=== PATIENT | male | born 1970 | race Caucasian/White ===

== ENCOUNTER 2021-02-25 12:26 | Emergency (ER) | payer OTHER, SELFPAY ==
[2021-02-25 12:27] VITALS: BP 135/88; PULSE 89; RESP 16; TEMP 36.9; O2SAT 100; BMI 31.4
--- NOTE | 2021-02-25 14:11 | RAD_ITS ---
STUDY: X-RAY - RIGHT FOOT CLINICAL: Male, 50 years old. Foot pain -- EDIT LATERALITY, VERB DR. CALDERON TECHNIQUE: 3 view(s) of the foot. COMPARISON: None. FINDINGS: Normal talus, calcaneus, and tarsal bones. Normal visualized subtalar, talonavicular, calcaneocuboid, tarsal and tarsometatarsal articulations. Normal metatarsi. Normal metatarsophalangeal joint of the great toe. There is a bipartite fibula sesamoid. Normal interphalangeal joint of the great toe. Normal phalanges of the great toe. Normal second through fifth metatarsophalangeal joints. Normal interphalangeal joints and phalanges of the lesser toes. Soft tissue swelling. RAD/Foot min 3 Views IMPRESSION: Soft tissue swelling. Electronically Signed: Olivier Pennington MD at 15:11 EDT , Service support ,
--- NOTE | 2021-02-25 14:36 | EX.ED.DYSGE1 ---
HPI History of Present Illness Chief Complaint: Cellulitis Narrative Narrative: Patient presenting for evaluation of his feet. He was put on doxycycline for a week as he had cellulitis secondary to athlete's foot. He states his foot was not getting better and his physician told him to come to the ED for evaluation. Patient states is not specifically painful and he does not have any systemic signs or symptoms. He states he is still being treated for athlete's foot on the left foot. This foot is not bothering him. He has no history of diabetes. PFSH PFSH Medical History GERD (gastroesophageal reflux disease) Hypertension Smoker Home Medications Triamcinolone 0.1% Cream [Kenalog] 1 applic TOPICAL TID #1 tube 05/24/16 [Rx Last Taken Unknown] aspirin 81 mg PO DAILY 05/24/16 [History Last Taken 05/24/16] doxycycline hyclate 100 mg PO BID 05/24/16 [History Last Taken 05/24/16] hydrochlorothiazide 25 mg PO DAILY 05/24/16 [History Last Taken 05/24/16] lisinopril 5 mg PO DAILY 05/24/16 [History Last Taken 05/24/16] clindamycin HCl 450 mg PO TID #80 capsule 02/25/21 [Rx Last Taken Unknown] fluconazole [Diflucan] 150 mg PO DAILY 02/25/21 [History Last Taken Unknown] ketoconazole 1 applic TOPICAL DAILY #60 g 02/25/21 [Rx Last Taken Unknown] levofloxacin 500 mg PO DAILY #7 tab 02/25/21 [Rx Last Taken Unknown] Allergy/AdvReac Type Severity Reaction Status Date / Time Penicillins [PCN] Allergy Hives Verified 02/25/21 15:00 Surgical History (Updated 02/25/21 @ 15:06 by Milady Melara) History of cholecystectomy Social History Smoking Status: Current every day smoker tobacco type: cigarettes ROS ROS ED Constitutional Constitutional ED: Denies chills or fever(s) Eyes Eyes: Denies blurry vision or change in vision ENT ENT ED: Denies rhinorrhea or sore throat Cardiovascular Cardiovascular: Denies chest pain or palpitations Respiratory/Chest Respiratory/Chest: Denies cough or dyspnea Gastrointestinal Gastrointestinal: Denies abdominal pain or nausea Genitourinary Genitourinary ED: Denies dysuria or hematuria Musculoskeletal Musculoskeletal: Denies myalgias Integumentary Reports rash and other Details: Athlete's foot on bilateral feet with cellulitis on his right foot. Neurologic Neurologic: Denies headache(s), paresthesias or weakness EXAM Physical Exam Const Vital Signs: 02/25/21 12:27 02/25/21 15:08 Temperature 98.5 F Temperature Source Temporal Pulse Rate 89 96 Respiratory Rate 16 18 Blood Pressure 135/88 H 133/87 H Blood Pressure Mean 103 102 Pulse Ox 100 97 Oxygen Delivery Method Room Air Room Air Positive well nourished and well developed General Appearance ED: well developed HEENT Reports moist mucous membranes Negative for trauma Resp normal respiratory effort Cardio regular rate and regular rhythm MDM MDM MDM Narrative Medical decision making narrative: Patient presenting with cellulitis. Has been on doxycycline for 6 to 7 days and not having improvement. He is not had any systemic signs or symptoms. I obtained blood work today which shows no leukocytosis. His renal function electrolytes are normal. CRP is normal. X-ray of the right foot shows mild soft tissue swelling on my interpretation. There is no subcutaneous gas. Patient not having pain or crepitance on exam either. I spoke with Dr. Galicia regarding the patient and he feels that he can see him tomorrow and we should start him on Levaquin and clindamycin. He will stop taking his Diflucan and start using ketoconazole on his feet. Patient amenable to this plan. He is discharged in stable condition. Impression: 1. Right foot cellulitis 2. Tinea pedis Lab Data Labs: Laboratory Results - last 24 hr 02/25/21 02/25/21 14:30 14:30 WBC 8.3 RBC 4.56 L Hgb 15.3 Hct 44.3 MCV 97.1 H MCH 33.6 H MCHC 34.5 RDW Std Deviation 41.3 RDW Coeff of Ren 11.6 Plt Count 277 MPV 8.2 Immature Gran % (Auto) 0.400 Neut % (Auto) 52.9 Lymph % (Auto) 24.7 [place] % (Auto) 12.7 H Eos % (Auto) 8.6 H Baso % (Auto) 0.7 Absolute Neuts (auto) 4.4 Absolute Lymphs (auto) 2.06 Nucleated RBC % 0 ESR 21 H Sodium 136 Potassium 3.9 Chloride 103 Carbon Dioxide 25.0 Anion Gap 8 BUN 16 Creatinine 1.01 Estim Creat Clear Calc 91.12 Est GFR (MDRD) Af Amer 99 Est GFR (MDRD) Non-Af 82 BUN/Creatinine Ratio 15.8 Glucose 113 H Calcium 8.8 C-React Prot Ext Range < 2.90 Radiography Diagnostic Testing: Radiology Impression Foot X-Ray 02/25/21 14:11 IMPRESSION: Soft tissue swelling. Electronically Signed: Olivier Pennington MD at 15:11 EDT , Service support , Discharge Plan Triage Chief Complaint: Cellulitis ED Provider: Layo Monahan Dx/Rx/DC Orders Instructions: Cellulitis Prescriptions: New levofloxacin 500 mg tablet 500 mg PO DAILY Qty: 7 RF: 0 clindamycin HCl 150 mg capsule 450 mg PO TID Qty: 80 RF: 0 ketoconazole 2 % cream 1 applic topical DAILY Qty: 60 RF: 0 No Action doxycycline hyclate 100 MG capsule 100 mg PO BID RF: 0 aspirin 81 MG tablet,delayed release (DR/EC) 81 mg PO DAILY RF: 0 lisinopril 5 MG tablet 5 mg PO DAILY RF: 0 hydrochlorothiazide 25 MG tablet 25 mg PO DAILY RF: 0 Triamcinolone 0.1% Cream [Kenalog] 1 APPLIC Tube 1 applic topical TID Qty: 1 RF: 0 fluconazole [Diflucan] 150 mg Tablet 150 mg PO DAILY RF: 0 Primary Care Provider: Jeremy Pablo Referrals: Jatinder Galicia DPM [STAFF PHYSICIAN] - 1 Day Jeremy Pablo MD [Primary Care Provider] - Disposition Disposition: Home, Self Care
[2021-02-25 14:41] LABS: Absolute Lymphocyte Count 2.06 X10^3/uL (0.83-4.51); Absolute Neutrophil Count 4.4 X10^3/uL (2.0-7.7); Basophil# 0.06 X10^3/uL; Basophil% 0.7 % (0-1); Eosinophil# 0.72 X10^3/uL; Eosinophils% 8.6 % (0-5); Erythrocyte Sedimentation Rate 21 mm/hr (0-20); Hematocrit 44.3 % (40-54); Hemoglobin 15.3 g/dL (13.0-16.5); Lymphocyte # 2.06 X10^3/ul (0.83-4.51); Lymphocyte % 24.7 % (19-41); Mean Corp Hgb Conc 34.5 g/dL (32-36); Mean Corpuscular Hgb 33.6 pg (27.0-32.0); Mean Corpuscular Volume 97.1 fL (80-94); Mean Platelet Vol. 8.2 fl (6.2-12.0); Monocyte# 1.06 X10^3/uL; Monocyte% 12.7 % (0-10); NRBC Flagged by Analyzer 0 % (0-5); Neutrophil % 52.9 % (47-70); Platelet Count 277 K/mm3 (150-450); RBC Distribution Width CV 11.6 % (11.6-14.6); RBC Distribution Width SD 41.3 fl (35.1-43.9); Red Blood Count 4.56 M/mm3 (4.6-6.2); White Blood Count 8.3 K/mm3 (4.4-11.0)
[2021-02-25 14:50] LABS: Anion Gap 8 (5-15); BUN 16 mg/dL (7-18); BUN/Creat Ratio 15.8 RATIO (10-20); CRP < 2.90 mg/L (0.0-3.0); Calcium,Total 8.8 mg/dL (8.5-10.1); Chloride 103 mmol/L (98-107); Creatinine, Serum 1.01 mg/dL (0.70-1.30); EST Glomerular Filtration Rate 82 mL/min (>60); Est Glom Filt Rate - Afr Amer 99 mL/min (>60); Estimated Creatinine Clearance 91.12 ml/min; Glucose 113 mg/dL (74-106); Potassium 3.9 mmol/L (3.5-5.1); Sodium Level 136 mmol/L (136-145)
[2021-02-25 15:08] VITALS: BP 133/87; PULSE 96; RESP 18; O2SAT 97
[2021-02-25] MEDS: Clindamycin HCl 150 MG Capsule 450 MG PO (15:54)
[2021-02-25] MEDS: levoFLOXacin 500 MG Tablet PO (15:54)
[2021-02-26 08:38] LABS: AST(SGOT) 26 U/L (15-37); Alanine Aminotransfer ALT/SGPT 44 U/L (16-61); Albumin, Serum 3.7 g/dL (3.2-5.0); Alkaline Phosphatase 79 U/L (45-117); Bilirubin, Direct 0.17 mg/dL (0.00-0.30); Globulin 3.9 g/dL (2.2-4.2); Protein, Total 7.6 g/dL (6.4-8.2)
== END 2021-02-25 16:00 | disposition home or self-care (01) ==
PROVIDERS: Emergency Provider Student in an Organized Health Care Education/Training Program; PCP Family Medicine
DX: L03.115 Cellulitis of right lower limb (principal); B35.3 Tinea pedis; I10 Essential (primary) hypertension; K21.9 Gastro-esophageal reflux disease without esophagitis; F17.210 Nicotine dependence, cigarettes, uncomplicated; Z79.82 Long term (current) use of aspirin; Z79.899 Other long term (current) drug therapy
CPT/HCPCS: 73630; 80048; 80076; 85025; 85652; 86140; 99283; A4216

== ENCOUNTER 2021-02-26 13:07 | Inpatient (IN) | payer OTHER, SELFPAY ==
[2021-02-25 12:27] VITALS: BMI 31.4
[2021-02-26 13:01] VITALS: BMI 31.5
[2021-02-26 13:03] VITALS: BP 135/90; PULSE 113; RESP 18; TEMP 36.7; O2SAT 98
[2021-02-26] MEDS: 0.9% Saline Lock 10 ML Syringe IV ×2 (13:29→15:13)
--- NOTE | 2021-02-26 13:48 | NURSING ---
skin photo: left foot
--- NOTE | 2021-02-26 13:48 | NURSING ---
wound photo: right foot
--- NOTE | 2021-02-26 13:49 | NURSING ---
wound photo: right foot
--- NOTE | 2021-02-26 13:55 | PCM.RX.CS ---
Consult Pharmacy has been consulted to manage selected antiobiotic: Vancomycin Type of Consult: New start Suspected Infection: Skin/Soft tissue Weight used for dosin kg Estimated Creatinine Clearance: 104mls/min Goal Trough: 10-15 mcg/mL Pharmacy Plan for Drug Dosing: NEW START IV VANCOMYCIN Consulting Physician: Dr. Galicia Indication: Cellulitis Goal Trough: 10-15 SrCr: 1.01 (from 02/25/21) CrCl: 104 mls/min (using an adjusted body weight of 86kg) Comments: Vancomcyin Dose: based on pts weight and renal function, recommend an initial dose of Vancomycin 1750mg IV q12h starting 02/26/21 at 1400. Trough before the 4th total dose Pending Level: 02/28/21 at 0130 Pharmacy Service will continue to monitor and adjust dosing as required. Follow-Up Labs: Trough Vancomycin - 02/28/21 at 0130
--- NOTE | 2021-02-26 14:38 | PCM.PN.HOSP ---
Subjective Subjective 50-year-old male presents from his census taker office for IV antibiotics. He has a left which started right lower extremity cellulitis about a week ago in the setting of athlete's foot that is been going on for 3 weeks in both of his feet. He says that he had so much swelling and itching from his athlete's foot that he had a cut develop on the right and then he started not with oral antibiotics however he took 1 dose of antibiotics and seemed to get worse he presented to his census taker who recommended he come in for IV antibiotics here in the hospital. He denies any history of diabetes and does have hypertensionicing some redness going up the leg. He did present to the ER yesterday and was sent home in between his first and second toes Objective Data Objective Data Vital Signs: Vital Signs Temp Pulse Resp BP Pulse Ox 98.1 F 113 H 18 135/90 H 98 02/26/21 13:03 02/26/21 13:03 02/26/21 13:03 02/26/21 13:03 02/26/21 13:03 Oxygen Delivery Method Room Air Weight: 226 lb 1.6 oz Body Mass Index (BMI) 31.5 Physical Exam Const alert, oriented x3 and no apparent distress General Appearance: cooperative HEENT normocephalic and moist oral mucous membranes Eyes PERRL, EOMs intact bilaterally and conjunctivae normal Neck supple and no JVD Resp normal respiratory effort, no retractions, no use of accessory muscles and clear to auscultation bilaterally Auscultation: Negative for crackles, rales, rhonchi or wheezes Cardio regular rate, regular rhythm, S1 normal heart sound, S2 normal heart sound and no murmurs GI soft to palpation, non-tender and non-distended; Negative for hepatosplenomegaly Extremity no clubbing, cyanosis or edema Skin Skin Narrative: Right lower extremity is wrapped culture was obtained by podiatry in the office. Neuro no focal motor deficits and no sensory deficits noted Psych affect normal Appearance: appropriate Assessment & Plan Assessment/Plan (1) Tinea pedis: QUALIFIERS: Laterality: bilateral Qualified Code(s): B35.3 - Tinea pedis (2) Cellulitis: QUALIFIERS: Laterality: right Site of cellulitis: extremity Site of cellulitis of extremity: lower extremity Qualified Code(s): L03.115 - Cellulitis of right lower limb PLAN: 1. Bilateral tinea pedis with cellulitis in the right lower extremity -Allergy to penicillin was a rash -Currently on vancomycin and Levaquin per primary, ID is consulted -Continue with terbinafine and clotrimazole 2. Hypertension -Blood pressure stable -Continue with chlorothiazide and lisinopril BMP is pending for the morning DVT: Ambulation secondary to observation status Charges/Coding Visit Charges OBSV E&M: 59378 Subsequent observation care L3
[2021-02-26] MEDS: levoFLOXacin IV 500 MG/100 ML BAG 100 MG IV (15:12)
[2021-02-26 16:43] VITALS: BP 120/80; PULSE 95; RESP 16; TEMP 37.2; O2SAT 96
--- NOTE | 2021-02-26 17:45 | PCM.HP.STD ---
HPI - General General Date of Admission: 02/26/21 HPI Narrative NILDA MORALES, is a 50 M who presents to hospital from office due to cellulitis right foot. He developed athletes foot about 3 weeks ago in the right foot, got worse, then when to PCP Dr. Pablo, started on Keflex and Diflucan, however continued to not improve so patient was sent to ER for hospital admission yesterday by Dr. Pablo. Dr. Monahan called me and said it did not require admission and asked if patient could follow up with me today in office to have it checked. Also antibiotic was changed from Keflex in ER to Clindamycin and Levaquin which patient relates he took 1 dose of each and it bothered his stomach. Also ER discontinued the Diflucan and switched him to topical ketoconazole cream for foot. Patient now has symptoms starting on left foot. Patient presented to my office today and symptoms not improving, relates he was expecting to be admitted yesterday. Patient relates there are blisters on the right foot and he relates to itching. He relates he has had a chronic rash on legs for quite awhile - red dots. Patient does not relate to any fever, chills, nausea or vomiting. Patient is a smoker. PFSH Medical History GERD (gastroesophageal reflux disease) Hypertension Loose, teeth Smoker Smoker Smoker Home Medications Triamcinolone 0.1% Cream [Kenalog] 1 applic TOPICAL TID #1 tube 05/24/16 [Rx Last Taken Unknown] aspirin 81 mg PO DAILY 05/24/16 [History Last Taken 02/19/21] hydrochlorothiazide 25 mg PO DAILY 05/24/16 [History Last Taken 02/26/21] lisinopril 5 mg PO DAILY 05/24/16 [History Last Taken 02/26/21] clindamycin HCl 450 mg PO TID #80 capsule 02/25/21 [Rx Last Taken 02/25/21] fluconazole [Diflucan] 150 mg PO DAILY 02/25/21 [History Last Taken 02/25/21] ketoconazole 1 applic TOPICAL DAILY #60 g 02/25/21 [Rx Last Taken 02/26/21] levofloxacin 500 mg PO DAILY #7 tab 02/25/21 [Rx Last Taken 02/26/21] Allergy/AdvReac Type Severity Reaction Status Date / Time Penicillins [PCN] Allergy Hives Verified 02/25/21 15:00 Surgical History (Updated 02/25/21 @ 15:06 by Milady Melara) History of cholecystectomy Social History (Updated 02/26/21 @ 13:13 by Bianca Hernandez) Smoking Status: Current every day smoker tobacco type: cigarettes details: occassional couple beers not daily Vital Signs Vital Signs Vital Signs: 02/26/21 13:03 02/26/21 13:35 02/26/21 16:00 Temperature 98.1 F Temperature Source Temporal Pulse Rate 113 H Respiratory Rate 18 Respiratory Effort Normal Non-Labored Respiratory Depth Normal Respiratory Pattern Normal Blood Pressure 135/90 H Blood Pressure Mean 105 Blood Pressure Source Monitor Blood Pressure Position Sitting Blood Pressure Location Right Arm Pulse Ox 98 Oxygen Delivery Method Room Air Room Air Room Air 02/26/21 16:43 Temperature 98.9 F Temperature Source Oral Pulse Rate 95 Respiratory Rate 16 Respiratory Effort Respiratory Depth Respiratory Pattern Blood Pressure 120/80 Blood Pressure Mean 93 Blood Pressure Source Monitor Blood Pressure Position Semi-Fowlers Blood Pressure Location Right Arm Pulse Ox 96 Oxygen Delivery Method Room Air Weight Weight: 102.557 kg Body Mass Index (BMI) 31.5 Physical Exam Const alert, oriented x3 and no apparent distress Extremity Extremity Narrative: There are bulla and vesicles to the right forefoot with erythema and edema to the right forefoot and midfoot, there is a superficial crack of skin dorsal 1st IM space, there is serous fluid in the blisters, there is scaling and flaking of skin to the right foot - this is consistent with tinea pedis with secondary cellulitis, the left foot with some mild flaking and scaling and mild cellulitis as well. There is no necrosis, no fluctuance, no crepitus, no maloder, no streaking, no visible abscess bilateral foot or ankle. Calf is soft and supple with no calf pain bilateral. Sensation intact to foot bilateral. No hypersensitivity to the foot or ankle bilateral. No evidence of ischemia to the foot or ankle bilateral. DP and PT pulses palpable bilateral. CFT < 2 seconds to all toes bilateral. Muscle mass and strength intact and within normal limits to the foot and ankle bilateral. Assessment & Plan Assessment/Plan (1) Cellulitis: QUALIFIERS: Laterality: right Site of cellulitis: extremity Site of cellulitis of extremity: lower extremity Qualified Code(s): L03.115 - Cellulitis of right lower limb (2) Tinea pedis: QUALIFIERS: Laterality: bilateral Qualified Code(s): B35.3 - Tinea pedis PLAN: Patient was seen and evaluated in office today. Agree patient should be admitted for further management as he has failed outpt care. Patient was admitted for IV antibiotics - started Vancomycin and Levaquin IV. Also terbinafine 205mg PO once a day has been started. Clotrimazole cream to feet topically BID. A culture has been obtained of the right foot and sent to microbiology for further evaluation. Labs from yesterday's ER visit also reviewed - WBC normal, creatinine and liver function normal. Also patient is afebrile. Right foot xrays were obtained yesterday in the ER - these were reviewed and no gas or evidence of osteomyelitis. Clinically do not suspect deeper infection at this time. Infectious Disease consult has been placed, and pending at this time. The bulla/vesicles right foot have been drained, dressed with betadine soln and gauze dressing - change daily. Hospitalist service consulted to help with medical management - greatly appreciate assistance. DVT Prophylaxis: pt ambulatory and also SCDs.
[2021-02-26 21:05] VITALS: BP 121/84; PULSE 86; RESP 18; TEMP 37.1; O2SAT 97
[2021-02-27 02:10] VITALS: BP 126/83; PULSE 85; RESP 16; TEMP 36.8; O2SAT 94
[2021-02-27] MEDS: 0.9% Saline Lock 10 ML Syringe IV (02:11)
[2021-02-27 06:31] LABS: Absolute Lymphocyte Count 2.04 X10^3/uL (0.83-4.51); Absolute Neutrophil Count 4.8 X10^3/uL (2.0-7.7); Basophil# 0.07 X10^3/uL; Basophil% 0.8 % (0-1); Eosinophil# 0.55 X10^3/uL; Eosinophils% 6.6 % (0-5); Hematocrit 42.7 % (40-54); Hemoglobin 14.5 g/dL (13.0-16.5); Lymphocyte # 2.04 X10^3/ul (0.83-4.51); Lymphocyte % 24.4 % (19-41); Mean Corpuscular Hgb 33.8 pg (27.0-32.0); Mean Corpuscular Volume 99.5 fL (80-94); Mean Platelet Vol. 8.2 fl (6.2-12.0); Monocyte% 10.8 % (0-10); NRBC Flagged by Analyzer 0 % (0-5); Neutrophil # 4.75 X10^3/uL (2.7-7.7); Neutrophil % 56.8 % (47-70); Platelet Count 248 K/mm3 (150-450); RBC Distribution Width CV 11.7 % (11.6-14.6); RBC Distribution Width SD 42.5 fl (35.1-43.9); Red Blood Count 4.29 M/mm3 (4.6-6.2); White Blood Count 8.4 K/mm3 (4.4-11.0)
[2021-02-27 06:54] LABS: Anion Gap 5 (5-15); BUN 19 mg/dL (7-18); BUN/Creat Ratio 18.8 RATIO (10-20); Calcium,Total 8.4 mg/dL (8.5-10.1); Chloride 102 mmol/L (98-107); Creatinine, Serum 1.01 mg/dL (0.70-1.30); EST Glomerular Filtration Rate 82 mL/min (>60); Est Glom Filt Rate - Afr Amer 99 mL/min (>60); Estimated Creatinine Clearance 91.12 ml/min; Glucose 144 mg/dL (74-106); Sodium Level 135 mmol/L (136-145)
--- NOTE | 2021-02-27 07:53 | PN_ITS ---
Subjective Subjective Patient was seen this morning for follow up on both feet. He is resting comfortably in bed, no complaints of fever, chills, nausea or vomiting, no calf pain. Objective Data Objective Data Vital Signs: Vital Signs Temp Pulse Resp BP Pulse Ox 98.3 F 85 16 126/83 H 94 02/27/21 02:10 02/27/21 02:10 02/27/21 02:10 02/27/21 02:10 02/27/21 02:10 Oxygen Delivery Method Room Air Weight: 102.557 kg Body Mass Index (BMI) 31.5 Intake & Output: Intake and Output for Last 24 Hours 02/25/21 02/26/21 02/27/21 23:59 23:59 23:59 Intake Total 2104.33 / 2104.33 765.5 / 765.5 Balance 2104.33 / 2104.33 765.5 / 765.5 Lab / Micro Data Result Diagrams: 02/27/21 06:24 02/27/21 06:24 Labs: Laboratory Results - last 24 hr 02/27/21 02/27/21 06:24 06:24 WBC 8.4 RBC 4.29 L Hgb 14.5 Hct 42.7 MCV 99.5 H MCH 33.8 H MCHC 34.0 RDW Std Deviation 42.5 RDW Coeff of Ren 11.7 Plt Count 248 MPV 8.2 Immature Gran % (Auto) 0.600 Neut % (Auto) 56.8 Lymph % (Auto) 24.4 [place] % (Auto) 10.8 H Eos % (Auto) 6.6 H Baso % (Auto) 0.8 Absolute Neuts (auto) 4.8 Absolute Lymphs (auto) 2.04 Nucleated RBC % 0 Sodium 135 L Potassium 4.0 Chloride 102 Carbon Dioxide 28.0 Anion Gap 5 BUN 19 H Creatinine 1.01 Estim Creat Clear Calc 91.12 Est GFR (MDRD) Af Amer 99 Est GFR (MDRD) Non-Af 82 BUN/Creatinine Ratio 18.8 Glucose 144 H Calcium 8.4 L Physical Exam Const alert, oriented x3 and no apparent distress Extremity Extremity Narrative: There are resolved bulla and vesicles to the right forefoot with resolving erythema and less edema to the right forefoot and midfoot, there is a healing superficial crack of skin dorsal 1st IM space, there is no drainage at this time, the left foot with some mild flaking and scaling and mild cellulitis as well - but is improving. There is no necrosis, no fluctuance, no crepitus, no maloder, no streaking, no visible abscess bilateral foot or ankle. Calf is soft and supple with no calf pain bilateral. Sensation intact to foot bilateral. No hypersensitivity to the foot or ankle bilateral. No evidence of ischemia to the foot or ankle bilateral. DP and PT pulses palpable bilateral. CFT < 2 seconds to all toes bilateral. Muscle mass and strength intact and within normal limits to the foot and ankle bilateral. Assessment & Plan Assessment/Plan (1) Cellulitis: QUALIFIERS: Site of cellulitis: extremity Site of cellulitis of e xtremity: lower extremity Laterality: right Qualified Code(s): L03.115 - Cellulitis of right lower limb (2) Tinea pedis: QUALIFIERS: Laterality: bilateral Qualified Code(s): B35.3 - Tinea pedis PLAN: Improvement noted today. Patient was admitted for IV antibiotics - on Vancomycin and Levaquin IV. Also terbinafine 205mg PO once a day has been ordered. Clotrimazole cream to feet topically BID. A culture has been obtained of the right foot and sent to microbiology for further evaluation - MRSA PCR negative, otherwise resulting pending. Right foot xrays were obtained in the ER - these were reviewed and no gas or evidence of osteomyelitis. Clinically do not suspect deeper infection at this time. Infectious Disease consult has been placed, and pending at this time. Hospitalist service consulted to help with medical management - greatly appreciate assistance. DVT Prophylaxis: pt ambulatory and also SCDs.
[2021-02-27 08:10] VITALS: BP 132/84; PULSE 83; RESP 16; TEMP 37; O2SAT 98
[2021-02-27] MEDS: TERBINAFINE HCL 250 MG TABLET PO (10:06)
[2021-02-27] MEDS: levoFLOXacin IV 500 MG/100 ML BAG 100 MG IV (10:06)
[2021-02-27] MEDS: Clotrimazole 1 APPLIC Tube TOPICAL ×2 (10:07→22:15)
--- NOTE | 2021-02-27 11:02 | CASEMGMT ---
RADHA FRANCISCO Assessment: Face to Face with pt for initial transition planning/care coordination assessment. RADHA FRANCISCO introduced self and role at [facility], pt voices understanding and consents to assessment. Pt is A/O x4 and answers all questions appropriately at this time. Pt sitting up in bed watching tv in no distress. Care providers, pharmacy, and demographics verified/updated. Admitting Dx: Cellulitis R foot PCP: Samy Specialists:Pt denies specialists other than seeing one time this week prior to hospitalization. Preferred Pharmacy: [facility] Insurance: [employer] Prescription Benefit: yes LW/HPOA: Pt denies having a LW/DPOA. LNOK: Darlene White, sister; Shruti, dtr Living Arrangements: Pt lives in a mobile home with 4 steps to enter with his dtr Shruti. Pt states his dtr is in a w/c and has dementia. He is the cg. Pt is I in ADL's and denies concerns at home. Transportation: Pt drives self and denies concerns with transportation. DME/HHC/SNF: Pt denies DME, history of HHC or SNF. Pt works time study statistician. Pt states no concerns with going home at time of dc. Pt states no further concerns/needs. CM to follow. Advised pt to ask CM if any further question/concerns/needs arise, voices understanding. Pt Goal: Home Plan: Home
--- NOTE | 2021-02-27 11:44 | PN.HOSP_ITS ---
Subjective Subjective Seen and examined. Patient has dressing and Bart wrap bandage around right foot. Left foot has mild erythema and rough skin texture on dorsum aspect suggestive of tinea infection. Objective Data Objective Data Vital Signs: Vital Signs Temp Pulse Resp BP Pulse Ox 98.6 F 83 16 132/84 H 98 02/27/21 08:10 02/27/21 08:10 02/27/21 08:10 02/27/21 08:10 02/27/21 08:10 Oxygen Delivery Method Room Air Weight: 226 lb 1.592 oz Body Mass Index (BMI) 31.5 Intake & Output: Intake and Output for Last 24 Hours 02/25/21 02/26/21 02/27/21 23:59 23:59 23:59 Intake Total 2104.33 / 2104.33 765.5 / 765.5 Balance 2104.33 / 2104.33 765.5 / 765.5 Lab / Micro Data Result Diagrams: 02/27/21 06:24 02/27/21 06:24 Labs: Laboratory Results - last 24 hr 02/27/21 02/27/21 06:24 06:24 WBC 8.4 RBC 4.29 L Hgb 14.5 Hct 42.7 MCV 99.5 H MCH 33.8 H MCHC 34.0 RDW Std Deviation 42.5 RDW Coeff of Ren 11.7 Plt Count 248 MPV 8.2 Immature Gran % (Auto) 0.600 Neut % (Auto) 56.8 Lymph % (Auto) 24.4 [place] % (Auto) 10.8 H Eos % (Auto) 6.6 H Baso % (Auto) 0.8 Absolute Neuts (auto) 4.8 Absolute Lymphs (auto) 2.04 Nucleated RBC % 0 Sodium 135 L Potassium 4.0 Chloride 102 Carbon Dioxide 28.0 Anion Gap 5 BUN 19 H Creatinine 1.01 Estim Creat Clear Calc 91.12 Est GFR (MDRD) Af Amer 99 Est GFR (MDRD) Non-Af 82 BUN/Creatinine Ratio 18.8 Glucose 144 H Calcium 8.4 L Physical Exam Narrative Physical exam General: Alert, Oriented x3, Cooperative HEENT: Atraumatic, PERRLA, EOMI, Normocephalic Oral: No Gingival or Mucosal Lesions/ Ulcerations Neck: Supple, No JVD, Negative Carotid Bruits Lungs: Air entry diminished in bilateral lung bases. No crepitation/rhonchi Cardiovascular: Regular rate, Regular Rhythm, Normal S1, Normal S2, No murmurs Abdomen: Bowel Sounds Present, Soft, Non Tender, Non-Distended : No renal angle tenderness. No suprapubic tenderness. Extremities: No edema, Capillary Refill Less than 3 Seconds Skin: Wound photo reviewed. Erythema, scaly, fissuring in right dorsal foot along with swelling and tenderness suggestive of tinea infection with bacterial superinfection. Superficial skin peeling off/wound on right medial margin of foot. Mild erythema over left dorsal foot. Musculoskeletal: No Tenderness to Palpation of Joints or Extremities Neurological: Cranial nerves II-XII grossly intact, Deep Tendon Reflexes 2+/4 and Symmetrical, Neuro grossly intact Psych/Mental Status: Normal Affect, Appropriate. Assessment & Plan Assessment/Plan (1) Cellulitis: QUALIFIERS: Site of cellulitis: extremity Site of cellulitis of extremity: lower extremity Laterality: right Qualified Code(s): L03.115 - Cellulitis of right lower limb (2) Tinea pedis: QUALIFIERS: Laterality: bilateral Qualified Code(s): B35.3 - Tinea pedis PLAN: This 50-year-old gentleman admitted with cellulitis of right foot with athlete's foot/candidal infection for last 3 weeks with failure of outpatient antibiotic Keflex, clindamycin, Levaquin and ketoconazole cream. Patient admitted by electronic die maker team. 1. Cellulitis of right lower leg and foot most probably strep, bacterial superinfection of bilateral feet tinea infection: Currently patient is on vancomycin and Levaquin. ID has been consulted. On terbinafine and clotrima zole cream topical. Patient feels improvement with IV antibiotics. Wound dressing done by wound nurse. 2. Hypertension -Blood pressure stable. Home medication reconciliation done. DVT: Lovenox 40 mg daily Charges/Coding Visit Charges Inpatient E&M: 05048 Subs Hosp L2
[2021-02-27] MEDS: Enoxaparin 40 MG/0.4 ML Syringe SC (12:44)
--- NOTE | 2021-02-27 13:52 | PCM.CONS.GEN ---
Assessment & Plan Assessment/Plan (1) Cellulitis: QUALIFIERS: Site of cellulitis: extremity Site of cellulitis of extremity: lower extremity Laterality: right Qualified Code(s): L03.115 - Cellulitis of right lower limb PLAN: R foot cellulitis, improving. Low suspicion for osteo. Seen by podiatry. Tolerated keflex with no issue, so will change abx to vanc/cefazolin. Cont terbinafine. Encouraged him to get covid vaccine as an outpt. Likely home with po abx soon. Foot much better. Will follow, thank you HPI Consult Data Date of Consult: 02/27/21 HPI Narrative HPI Narrative: NILDA MORALES, is a 50 M who presented with 1-2 weeks worsening R foot pain, redness, swelling, skin breakdown. Had athlete's foot, scratched his foot in middle of the night, had new infection start. Went to [facility], given doxy, sx continued to worsen. Fluc added by PCP. No fever or chills. Has not gotten covid shot. Admitted here, seen by podiatry, started on vanc/levaquin/terbinafine, much improved today. Reports hives with PCN as a small child, no anaphylaxis. Amoxicillin causes upset stomach, no issues with multiple courses of keflex. Full ROS performed and neg except as noted above. PFSH Medical History GERD (gastroesophageal reflux disease) Hypertension Loose, teeth Smoker Smoker Smoker Home Medications Triamcinolone 0.1% Cream [Kenalog] 1 applic TOPICAL TID #1 tube 05/24/16 [Rx Last Taken Unknown] aspirin 81 mg PO DAILY 05/24/16 [History Last Taken 02/19/21] hydrochlorothiazide 25 mg PO DAILY 05/24/16 [History Last Taken 02/26/21] lisinopril 5 mg PO DAILY 05/24/16 [History Last Taken 02/26/21] clindamycin HCl 450 mg PO TID #80 capsule 02/25/21 [Rx Last Taken 02/25/21] fluconazole [Diflucan] 150 mg PO DAILY 02/25/21 [History Last Taken 02/25/21] ketoconazole 1 applic TOPICAL DAILY #60 g 02/25/21 [Rx Last Taken 02/26/21] levofloxacin 500 mg PO DAILY #7 tab 02/25/21 [Rx Last Taken 02/26/21] Allergy/AdvReac Type Severity Reaction Status Date / Time Penicillins [PCN] Allergy Hives Verified 02/27/21 13:52 Surgical History (Updated 02/25/21 @ 15:06 by Milady Melara) History of cholecystectomy Social History (Updated 02/26/21 @ 13:13 by Bianca Hernandez) Smoking Status: Current every day smoker tobacco type: cigarettes details: occassional couple beers not daily Physical Exam Const alert and no apparent distress General Appearance: cooperative Exam Limitations: no limitations HEENT normocephalic and head/scalp atraumatic Eyes PERRL and EOMs intact bilaterally Neck supple and No nodes Resp normal air movement and clear to auscultation bilaterally Cardio regular rate and regular rhythm GI normal to inspection, nondistended, normoactive bowel sounds Extremity no clubbing, cyanosis or edema Skin Skin Narrative: reviewed photo Neuro CN's II-XII intact bilaterally Lab / Micro Data Result Diagrams: 02/27/21 06:24 02/27/21 06:24 Labs: Laboratory Results - last 24 hr 02/27/21 02/27/21 06:24 06:24 WBC 8.4 RBC 4.29 L Hgb 14.5 Hct 42.7 MCV 99.5 H MCH 33.8 H MCHC 34.0 RDW Std Deviation 42.5 RDW Coeff of Ren 11.7 Plt Count 248 MPV 8.2 Immature Gran % (Auto) 0.600 Neut % (Auto) 56.8 Lymph % (Auto) 24.4 [place] % (Auto) 10.8 H Eos % (Auto) 6.6 H Baso % (Auto) 0.8 Absolute Neuts (auto) 4.8 Absolute Lymphs (auto) 2.04 Nucleated RBC % 0 Sodium 135 L Potassium 4.0 Chloride 102 Carbon Dioxide 28.0 Anion Gap 5 BUN 19 H Creatinine 1.01 Estim Creat Clear Calc 91.12 Est GFR (MDRD) Af Amer 99 Est GFR (MDRD) Non-Af 82 BUN/Creatinine Ratio 18.8 Glucose 144 H Calcium 8.4 L
[2021-02-27] MEDS: Cefazolin 2 GM in 0.9% Normal Saline 100 ML IV ×2 (15:03→22:14)
[2021-02-27 15:09] VITALS: BP 102/59; PULSE 83; RESP 18; TEMP 36.9; O2SAT 98
[2021-02-27 22:18] VITALS: BP 115/61; PULSE 78; RESP 18; TEMP 37; O2SAT 95
[2021-02-28 01:58] LABS: Vancomycin, Trough Level 14.9 ug/mL (5.0-15.0)
[2021-02-28 02:24] VITALS: BP 107/68; PULSE 77; RESP 18; TEMP 36.9; O2SAT 95
[2021-02-28] MEDS: Cefazolin 2 GM in 0.9% Normal Saline 100 ML IV ×3 (06:33→21:08)
--- NOTE | 2021-02-28 07:32 | PCM.RX.CS ---
Consult Pharmacy has been consulted to manage selected antiobiotic: Vancomycin Type of Consult: Follow-up Suspected Infection: Skin/Soft tissue Labs: Sodium 135 mmol/L (136-145) L 02/27/21 06:24 Potassium 4.0 mmol/L (3.5-5.1) 02/27/21 06:24 Chloride 102 mmol/L (98-107) 02/27/21 06:24 Carbon Dioxide 28.0 mmol/L (21.0-32.0) 02/27/21 06:24 Anion Gap 5 (5-15) 02/27/21 06:24 BUN 19 mg/dL (7-18) H 02/27/21 06:24 Creatinine 1.01 mg/dL (0.70-1.30) 02/27/21 06:24 Est GFR (MDRD) Af Amer 99 mL/min (>60) 02/27/21 06:24 Est GFR (MDRD) Non-Af 82 mL/min (>60) 02/27/21 06:24 BUN/Creatinine Ratio 18.8 RATIO (10-20) 02/27/21 06:24 Glucose 144 mg/dL (74-106) H 02/27/21 06:24 Vancomycin Trough 14.9 ug/mL (5.0-15.0) 02/28/21 01:20 Goal Trough: 10-15 mcg/mL Pharmacy Plan for Drug Dosing: VANCOMYCIN LEVEL RECEIVED Current Vancomycin Dose: 1750mg q12h (,14) Number of Doses Received: 3 doses of 1750mg Vancomycin Level: 14.9 Hours Since Last Dose: approx. 9.5 hours Renal Function: Last SrCr level was on 02/27/21, and was 1.01 Renal Function Trend: SrCr is stable Lab/Micro: Vancomycin Plan/Comments: recommend continuing current dose. Trough level is within ordered trough goal of 10-15. will repeat trough before the 4th dose Pending Level: 03/01/21 at 1330 Pharmacy Service will continue to monitor and adjust dosing as required. Follow-Up Labs: Trough Vancomycin - 03/01/21 at 1330
[2021-02-28 07:47] VITALS: BP 117/69; PULSE 85; RESP 18; TEMP 36.5; O2SAT 98
[2021-02-28] MEDS: Aspirin E.C. 81 MG Tablet PO (07:50)
--- NOTE | 2021-02-28 08:02 | PCM.PROGNOTE ---
Subjective Subjective Patient was seen this morning for follow up on feet bilateral. He is resting comfortably in bed, feet improving. No fever, chills, nausea, vomiting or calf pain. Objective Data Objective Data Vital Signs: Vital Signs Temp Pulse Resp BP Pulse Ox 97.7 F L 85 18 117/69 98 02/28/21 07:47 02/28/21 07:47 02/28/21 07:47 02/28/21 07:47 02/28/21 07:47 Oxygen Delivery Method Room Air Weight: 102.557 kg Body Mass Index (BMI) 31.5 Intake & Output: Intake and Output for Last 24 Hours 02/26/21 02/27/21 02/28/21 23:59 23:59 23:59 Intake Total 2104.33 / 2104.33 3220.5 / 3220.5 535.00 / 535.00 Balance 2104.33 / 2104.33 3220.5 / 3220.5 535.00 / 535.00 Lab / Micro Data Result Diagrams: 02/27/21 06:24 02/27/21 06:24 Labs: Laboratory Results - last 24 hr 02/28/21 01:20 Vancomycin Trough 14.9 Physical Exam Const alert, oriented x3 and no apparent distress Extremity Extremity Narrative: Erythema continues to resolve and much improved, there is resolving edema to the right forefoot and midfoot, there is a healing superficial crack of skin dorsal 1st IM space, there is no drainage at this time, the left foot with some mild flaking and scaling and mild cellulitis as well - but is improving. There is no necrosis, no fluctuance, no crepitus, no maloder, no streaking, no visible abscess bilateral foot or ankle. Calf is soft and supple with no calf pain bilateral. Sensation intact to foot bilateral. No hypersensitivity to the foot or ankle bilateral. No evidence of ischemia to the foot or ankle bilateral. DP and PT pulses palpable bilateral. CFT < 2 seconds to all toes bilateral. Muscle mass and strength intact and within normal limits to the foot and ankle bilateral. Assessment & Plan Assessment/Plan (1) Cellulitis: QUALIFIERS: Laterality: right Site of cellulitis: extremity Site of cellulitis of extremity: lower extremity Qualified Code(s): L03.115 - Cellulitis of right lower limb (2) Tinea pedis: QUALIFIERS: Laterality: bilateral Qualified Code(s): B35.3 - Tinea pedis PLAN: Continued improvement noted today. Patient was admitted for IV antibiotics - on Vancomycin and cefazolin, also terbinafine 205mg PO once a day. Clotrimazole cream to feet topically BID. A culture has been obtained of the right foot and sent to microbiology for further evaluation - MRSA PCR negative, no growth so far. Right foot xrays were obtained in the ER - these were reviewed and no gas or evidence of osteomyelitis. Clinically do not suspect deeper infection at this time. Infectious Disease/Dr. Hamm has been consulted, and reviewed recommendations. Hospitalist service consulted to help with medical management - greatly appreciate assistance. DVT Prophylaxis: Lovenox
[2021-02-28] MEDS: Clotrimazole 1 APPLIC Tube TOPICAL ×2 (10:40→21:09)
[2021-02-28] MEDS: Lisinopril 5 MG Tablet PO (10:40)
[2021-02-28] MEDS: hydroCHLOROthiazide 25 MG Tablet PO (10:40)
--- NOTE | 2021-02-28 10:40 | PCM.PN.ID ---
Physical Exam Narrative Feeling better, foot less red and sore, no fever, no n/v/d. Const alert General Appearance: cooperative Resp clear to auscultation bilaterally Cardio regular rate and regular rhythm GI normal to inspection, nondistended, normoactive bowel sounds Skin Skin Narrative: R foot wrapped ID ID: Route of nutrition/ use of supplements: [] Nutritional Intake: [] IV Site: [] Kohler Catheter: [] Assessment & Plan Assessment/Plan (1) Cellulitis: QUALIFIERS: Site of cellulitis: extremity Site of cellulitis of extremity: lower extremity Laterality: right Qualified Code(s): L03.115 - Cellulitis of right lower limb PLAN: R foot cellulitis, improving. Low suspicion for osteo. Seen by podiatry. Tolerated keflex with no issue, so 02/27 changed abx to vanc/cefazolin. Cont terbinafine. Encouraged him to get covid vaccine as an outpt. Plan on home with po doxy 100mg bid and keflex 500mg tid for one more week. Foot much better. Will follow
[2021-02-28] MEDS: Enoxaparin 40 MG/0.4 ML Syringe SC (10:41)
[2021-02-28] MEDS: TERBINAFINE HCL 250 MG TABLET PO (10:41)
--- NOTE | 2021-02-28 13:42 | PCM.PN.HOSP ---
Subjective Subjective Patient did not sleep last night and requested sleeping aid. Cellulitis, pain and erythema improving. No fever. Objective Data Objective Data Vital Signs: Vital Signs Temp Pulse Resp BP Pulse Ox 97.7 F L 85 18 117/69 98 02/28/21 07:47 02/28/21 07:47 02/28/21 07:47 02/28/21 07:47 02/28/21 07:47 Oxygen Delivery Method Room Air Weight: 226 lb 1.592 oz Body Mass Index (BMI) 31.5 Intake & Output: Intake and Output for Last 24 Hours 02/26/21 02/27/21 02/28/21 23:59 23:59 23:59 Intake Total 2104.33 / 2104.33 3220.5 / 3220.5 1545.00 / 1545.00 Balance 2104.33 / 2104.33 3220.5 / 3220.5 1545.00 / 1545.00 Lab / Micro Data Result Diagrams: 02/27/21 06:24 02/27/21 06:24 Labs: Laboratory Results - last 24 hr 02/28/21 01:20 Vancomycin Trough 14.9 Physical Exam Narrative Physical exam General: Alert, Oriented x3, Cooperative HEENT: Atraumatic, PERRLA, EOMI, Normocephalic Oral: No Gingival or Mucosal Lesions/ Ulcerations Neck: Supple, No JVD, Negative Carotid Bruits Lungs: Air entry diminished in bilateral lung bases. No crepitation/rhonchi Cardiovascular: Regular rate, Regular Rhythm, Normal S1, Normal S2, No murmurs Abdomen: Bowel Sounds Present, Soft, Non Tender, Non-Distended : No renal angle tenderness. No suprapubic tenderness. Extremities: No edema, Capillary Refill Less than 3 Seconds Skin: Wound photo reviewed. Erythema, scaly, fissuring in right dorsal foot. Superficial skin wound on right medial margin of foot. Musculoskeletal: No Tenderness to Palpation of Joints or Extremities Neurological: Cranial nerves II-XII grossly intact, Deep Tendon Reflexes 2+/4 and Symmetrical, Neuro grossly intact Psych/Mental Status: Normal Affect, Appropriate. Assessment & Plan Assessment/Plan (1) Cellulitis: QUALIFIERS: Site of cellulitis: extremity Site of cellulitis of extremity: lower extremity Laterality: right Qualified Code(s): L03.115 - Cellulitis of right lower limb (2) Tinea pedis: QUALIFIERS: Laterality: bilateral Qualified Code(s): B35.3 - Tinea pedis PLAN: This 50-year-old gentleman admitted with cellulitis of right foot with athlete's foot/candidal infection for last 3 weeks with failure of outpatient antibiotic Keflex, clindamycin, Levaquin and ketoconazole cream. Patient admitted by die drawing checker team. 1. Cellulitis of right lower leg and foot most probably strep, bacterial superinfection of bilateral feet tinea infection: Currently patient is on vancomycin and Levaquin. ID has been consulted. On terbinafine and clotrimazole cream topical. Patient feels improvement with IV antibiotics. Wound dressing done by wound nurse. 02/28: Associate Professor Of Engineering requested to keep patient for 1 more day for IV antibiotic. I agree on vancomycin trough is about 15. On vancomycin and cefazolin. Plan for discharge home tomorrow a.m. on Doxy and Keflex for 1 more week. Continue terbinafine 2. Hypertension -Blood pressure stable. Home medication reconciliation done. DVT: Lovenox 40 mg daily Charges/Coding Visit Charges Inpatient E&M: 64319 Subs Hosp L2
[2021-02-28 16:20] VITALS: BP 111/55; PULSE 84; RESP 18; TEMP 36.2; O2SAT 98
[2021-02-28 20:03] VITALS: BP 104/75; PULSE 94; RESP 16; TEMP 37.2; O2SAT 97
[2021-02-28] MEDS: Zolpidem Tartrate 5 MG Tablet PO (21:08)
[2021-03-01 01:55] VITALS: BP 121/73; PULSE 81; RESP 18; TEMP 36.6; O2SAT 99
[2021-03-01] MEDS: Cefazolin 2 GM in 0.9% Normal Saline 100 ML IV (05:48)
[2021-03-01 07:18] VITALS: BP 110/66; PULSE 79; RESP 14; TEMP 36.7; O2SAT 92
[2021-03-01] MEDS: Clotrimazole 1 APPLIC Tube TOPICAL (09:36)
[2021-03-01] MEDS: hydroCHLOROthiazide 25 MG Tablet PO (10:03)
[2021-03-01] MEDS: Aspirin E.C. 81 MG Tablet PO (10:04)
[2021-03-01] MEDS: TERBINAFINE HCL 250 MG TABLET PO (10:05)
[2021-03-01] MEDS: Lisinopril 5 MG Tablet PO (10:05)
[2021-03-01] MEDS: Enoxaparin 40 MG/0.4 ML Syringe SC (10:06)
--- NOTE | 2021-03-01 10:29 | PCM.DC ---
Discharge Instructions Diet Discharge Diet: No restrictions Activity Weight Bearing Status: Weight bearing as tolerated (surgical shoe when up. ) Dressing / Incision Call your doctor if your incision/area has: Continuous Slow Oozing, Sudden Increased Bleeding, Increased Pain/ Swelling, Increased Redness and Foul Smelling Discharge Call your doctor if you observe: Fever of 101 or Higher Change Dressing in: 1 day Follow Up Care Test Results: Test results from this visit will be discussed in further detail at your follow-up appointment, if applicable. Discharge Plan Admission Admit Date/Time: 02/26/21 13:07 Attending Provider: Trung Mayer Primary Care Provider: Jeremy Pablo Consulting Providers: Grayson Hamm ; Davy Whitten Discharge Orders/Prescriptions Prescriptions: New terbinafine HCl 250 mg Tablet 250 mg PO DAILY Qty: 11 RF: 0 ibuprofen 600 mg Tablet 600 mg PO Q8H PRN PRN (Reason: fever, pain 1-10) Qty: 0 RF: 0 clotrimazole 1 % cream 1 applic topical BID 14 Days Qty: 15 RF: 0 cephalexin 500 mg tablet 500 mg PO Q8H Qty: 21 RF: 0 doxycycline hyclate 100 mg capsule 100 mg PO BID Qty: 14 RF: 0 Continued aspirin 81 MG tablet,delayed release (DR/EC) 81 mg PO DAILY RF: 0 lisinopril 5 MG tablet 5 mg PO DAILY RF: 0 hydrochlorothiazide 25 MG tablet 25 mg PO DAILY RF: 0 Discontinued Triamcinolone 0.1% Cream [Kenalog] 1 APPLIC Tube 1 applic topical TID Qty: 1 RF: 0 fluconazole [Diflucan] 150 mg Tablet 150 mg PO DAILY RF: 0 levofloxacin 500 mg tablet 500 mg PO DAILY Qty: 7 RF: 0 clindamycin HCl 150 mg capsule 450 mg PO TID Qty: 80 RF: 0 ketoconazole 2 % cream 1 applic topical DAILY Qty: 60 RF: 0 Referrals / Follow Up: Jatinder Galicia DPM [STAFF PHYSICIAN] - In 1 Week Jeremy Pablo MD [Primary Care Provider] - In 1 Week Disposition Disposition (needs filled in before D/C Order can be placed): Home, Self Care
--- NOTE | 2021-03-01 10:43 | PN.HOSP_ITS ---
Subjective Subjective Bleeding on right foot. Now stopped. Objective Data Objective Data Vital Signs: Vital Signs Temp Pulse Resp BP Pulse Ox 36.7 C 79 14 110/66 92 03/01/21 07:18 03/01/21 07:18 03/01/21 07:18 03/01/21 07:18 03/01/21 07:18 Oxygen Delivery Method Room Air Weight: 102.557 kg Body Mass Index (BMI) 31.5 Intake & Output: Intake and Output for Last 24 Hours 02/27/21 02/28/21 03/01/21 23:59 23:59 23:59 Intake Total 3220.5 / 3220.5 3250.00 / 3250.00 645 / 645 Balance 3220.5 / 3220.5 3250.00 / 3250.00 645 / 645 Lab / Micro Data Result Diagrams: 02/27/21 06:24 02/27/21 06:24 Physical Exam Const alert and oriented x3 Skin Skin Narrative: resolving erythema. tinea pedis. sloghed skin on dorsum or right foot and area on arch of right foot. Neuro moves all extremities Sensorium / Orientation: awake Assessment & Plan Assessment/Plan (1) Cellulitis: QUALIFIERS: Site of cellulitis: extremity Site of cellulitis of extremity: lower extremity Laterality: right Qualified Code(s): L03.115 - Cellulitis of right lower limb (2) Tinea pedis: QUALIFIERS: Laterality: bilateral Qualified Code(s): B35.3 - Tinea pedis PLAN: This 50-year-old gentleman admitted with cellulitis of right foot with athlete's foot/candidal infection for last 3 weeks with failure of outpatient antibiotic Keflex, clindamycin, Levaquin and ketoconazole cream. Patient admitted by review scheduling coordinator team. 1. Cellulitis of right lower leg and foot most probably strep, bacterial superinfection of bilateral feet tinea infection: * improving * Per ID: continue with doxy and cephalexin for 1 more week. Continue with terbinafine (scripts written) * continue with wound care and follow up with podiatry. Medically stable for discharge. Charges/Coding Visit Charges Inpatient E&M: 29664 Subs Hosp L2
--- NOTE | 2021-03-01 10:59 | CASEMGMT ---
RADHA CM in to pt room. Pt is ready for dc. Pt denies any needs/concerns at this time.
--- NOTE | 2021-03-01 14:09 | PCM.PROGNOTE ---
Subjective Subjective Patient was seen today for follow up on bilateral feet. He feels ready to go home. He relates there was some bleeding on the bandage right foot last night, was changed this morning. He has no complaints of fever, chills, nausea, vomiting, calf pain or diarrhea. Objective Data Objective Data Vital Signs: Vital Signs Temp Pulse Resp BP Pulse Ox 98.1 F 79 14 110/66 92 03/01/21 07:18 03/01/21 07:18 03/01/21 07:18 03/01/21 07:18 03/01/21 07:18 Oxygen Delivery Method Room Air Weight: 102.557 kg Body Mass Index (BMI) 31.5 Intake & Output: Intake and Output for Last 24 Hours 02/27/21 02/28/21 03/01/21 23:59 23:59 23:59 Intake Total 3220.5 / 3220.5 3250.00 / 3250.00 645 / 645 Balance 3220.5 / 3220.5 3250.00 / 3250.00 645 / 645 Lab / Micro Data Result Diagrams: 02/27/21 06:24 02/27/21 06:24 Physical Exam Const alert, oriented x3 and no apparent distress Extremity Extremity Narrative: Erythema much improved, edema mostly gone, there is a healing superficial crack of skin dorsal 1st IM space which appears practically healed, there is no drainage at this time, the left foot with some mild flaking and scaling and mild cellulitis as well - but is improving. There is no necrosis, no fluctuance, no crepitus, no maloder, no streaking, no visible abscess bilateral foot or ankle. Calf is soft and supple with no calf pain bilateral. Sensation intact to foot bilateral. No hypersensitivity to the foot or ankle bilateral. No evidence of ischemia to the foot or ankle bilateral. DP and PT pulses palpable bilateral. CFT < 2 seconds to all toes bilateral. Muscle mass and strength intact and within normal limits to the foot and ankle bilateral. Assessment & Plan Assessment/Plan (1) Cellulitis: QUALIFIERS: Site of cellulitis: extremity Site of cellulitis of extremity: lower extremity Laterality: right Qualified Code(s): L03.115 - Cellulitis of right lower limb (2) Tinea pedis: QUALIFIERS: Laterality: bilateral Qualified Code(s): B35.3 - Tinea pedis PLAN: Continued improvement again noted today. Patient was admitted for IV antibiotics - on Vancomycin and cefazolin, also terbinafine 205mg PO once a day. Clotrimazole cream to feet topically BID. A culture has been obtained of the right foot and sent to microbiology for further evaluation - MRSA PCR negative, no growth so far. Right foot xrays were obtained in the ER - these were reviewed and no gas or evidence of osteomyelitis. Clinically do not suspect deeper infection at this time. Infectious Disease/Dr. Hamm has been consulted, and reviewed recommendations. Hospitalist service consulted to help with medical management - greatly appreciate assistance. Patient is going to be discharged home today on oral Doxy, Keflex, and Terbinafine, as well as topical antifungal cream, he can also use topical Benadryl to help with iching on the foot. Patient to follow up with me in office on Thursday next week, but gave patient our contact information and advised him to call sooner if needed.
== END 2021-03-01 13:14 | disposition home or self-care (01) | DRG 603 ==
PROVIDERS: Family Medicine; Admitting Provider Podiatrist; PCP Family Medicine; Referring Provider Podiatrist
DX: L03.115 Cellulitis of right lower limb (principal); B35.3 Tinea pedis; I10 Essential (primary) hypertension; K21.9 Gastro-esophageal reflux disease without esophagitis; F17.210 Nicotine dependence, cigarettes, uncomplicated; Z79.82 Long term (current) use of aspirin; Z79.899 Other long term (current) drug therapy; Z88.0 Allergy status to penicillin
CPT/HCPCS: 36415; 80048; 80202; 85025; 97802; 99406; J7040; J7050; A4216

== ENCOUNTER → 2021-02-26 | Outpatient (CLI) | payer OTHER, SELFPAY ==
[2021-02-26 13:01] VITALS: BMI 31.5
[2021-02-26 18:42] LABS: M R Staph aureus DNA By PCR Negative (Negative); Probe Check PASS; Specimen Processing Control PASS; Staph aureus DNA By PCR NEGATIVE (Negative)
== END | disposition home or self-care (01) ==
PROVIDERS: PCP Family Medicine; Referring Provider Podiatrist; Visit Provider Podiatrist
DX: L03.115 Cellulitis of right lower limb (principal); B35.3 Tinea pedis
CPT/HCPCS: 87070; 87075; 87101; 87205; 87640

== ENCOUNTER 2021-03-01 22:48 | Observation (INO) | payer OTHER, SELFPAY ==
[2021-03-01 22:49] VITALS: BP 149/85; PULSE 108; RESP 16; TEMP 36.8; O2SAT 98; BMI 31.4
[2021-03-01 22:51] VITALS: BP 104/75; PULSE 89; RESP 16; TEMP 36.8; O2SAT 98
--- NOTE | 2021-03-01 23:06 | EX.ED.DYSGE1 ---
HPI History of Present Illness Chief Complaint: Cellulitis Informant: patient Onset/Context/Timing Onset: Days Narrative Narrative: Patient discharged from the hospital today after admission for cellulitis and tinea pedis the bilateral feet. Patient was discharged on doxycycline and Keflex along with clotrimazole topically and terbinafine. Patient presents back tonight see he is got new area of redness on both the medial and lateral heel of the right foot. He was advised to return for any worsening symptoms. He states he otherwise feels well. He does admit to being on his feet quite a bit since being discharged. PFSH PFSH Medical History GERD (gastroesophageal reflux disease) Hypertension Loose, teeth Smoker Home Medications aspirin 81 mg PO DAILY 05/24/16 [History Last Taken 02/19/21] hydrochlorothiazide 25 mg PO DAILY 05/24/16 [History Last Taken 02/26/21] lisinopril 5 mg PO DAILY 05/24/16 [History Last Taken 02/26/21] cephalexin 500 mg PO Q8H #21 tab 03/01/21 [Rx Last Taken Unknown] clotrimazole 1 applic TOPICAL BID 14 Days #15 g 03/01/21 [Rx Last Taken Unknown] doxycycline hyclate 100 mg PO BID #14 cap 03/01/21 [Rx Last Taken Unknown] ibuprofen 600 mg PO Q8H PRN PRN #0 tab 03/01/21 [Rx Last Taken Unknown] terbinafine HCl 250 mg PO DAILY #11 tab 03/01/21 [Rx Last Taken Unknown] Allergy/AdvReac Type Severity Reaction Status Date / Time Penicillins [PCN] Allergy Hives Verified 03/01/21 22:52 Surgical History History of cholecystectomy Social History Smoking Status: Current every day smoker tobacco type: cigarettes details: occassional couple beers not daily ROS ROS ED Constitutional Constitutional ED: Denies chills or fever(s) Eyes Eyes: Denies change in vision ENT ENT ED: Denies sore throat Cardiovascular Cardiovascular: Denies chest pain Respiratory/Chest Respiratory/Chest: Denies cough or dyspnea Gastrointestinal Gastrointestinal: Denies abdominal pain, diarrhea, nausea or vomiting Genitourinary Genitourinary ED: Denies dysuria Musculoskeletal Musculoskeletal: Denies back pain Integumentary Reports rash Neurologic Neurologic: Denies headache(s) or weakness Psychiatric Psychiatric: Denies anxiety or depression Endocrine Endocrinology: Denies polydipsia or polyuria Allergic/Immunologic Allergic/Immunologic ED: Denies urticaria EXAM Physical Exam Const Vital Signs: 03/01/21 22:49 03/01/21 22:51 03/01/21 22:53 Temperature 98.3 F 98.3 F Temperature Source Temporal Temporal Pulse Rate 108 H 89 Respiratory Rate 16 16 Respiratory Effort Blood Pressure 149/85 H 104/75 Blood Pressure Mean 106 84 Pulse Ox 98 98 Oxygen Delivery Method Room Air Room Air Room Air 03/01/21 22:55 03/02/21 00:17 03/02/21 00:59 Temperature 98.0 F Temperature Source Temporal Pulse Rate 89 92 Respiratory Rate 16 16 Respiratory Effort Normal Blood Pressure 104/75 103/59 L Blood Pressure Mean 84 73 Pulse Ox 96 Oxygen Delivery Method Room Air Positive well nourished and well developed General Appearance ED: well developed HEENT Reports normocephalic and head/scalp atraumatic Eyes PERRL and EOMs intact bilaterally Neck supple Chest Wall inspection of chest normal and palpation of chest normal Resp normal respiratory effort and clear to auscultation bilaterally Cardio regular rate and regular rhythm GI normal to inspection, nondistended, normoactive bowel sounds Palpation: soft Extremity Extremity Narrative: Right lower extremity with desquamation and mild erythema inside the marked outline. Patient has what looks like petechial lesions up the shins bilaterally. There is an area of dark red/purple discoloration to both the medial and lateral calcaneal region. He states these areas are new. Left foot reveals dry skin with minimal erythema. Right upper extremity examination feels mild erythema and warmth on the volar forearm from prior IV site. This is consistent with a phlebitis. Neuro oriented x3 and no sensory deficits noted Sensorium / Orientation: alert Motor Exam: strength 5/5 throughout Psych mental status grossly normal MDM MDM MDM Narrative Medical decision making narrative: Lab work was obtained. It appears the last labs were obtained on February 27. Lab Data Attestation: I reviewed the patient's lab results. Labs: Laboratory Results - last 24 hr 03/01/21 03/01/21 23:20 23:20 WBC 9.4 RBC 4.42 L Hgb 14.9 Hct 42.9 MCV 97.1 H MCH 33.7 H MCHC 34.7 RDW Std Deviation 41.4 RDW Coeff of Ren 11.6 Plt Count 248 MPV 8.3 Immature Gran % (Auto) 0.900 Neut % (Auto) 53.5 Lymph % (Auto) 27.2 Pleas[place] % (Auto) 12.3 H Eos % (Auto) 5.4 H Baso % (Auto) 0.7 Absolute Neuts (auto) 5.0 Absolute Lymphs (auto) 2.55 Nucleated RBC % 0 ESR 26 H Sodium 132 L Potassium 3.7 Chloride 100 Carbon Dioxide 23.0 Anion Gap 9 BUN 15 Creatinine 0.81 Estim Creat Clear Calc 113.62 Est GFR (MDRD) Af Amer 128 Est GFR (MDRD) Non-Af 105 BUN/Creatinine Ratio 18.4 Glucose 117 H Calcium 8.5 C-React Prot Ext Range 3.01 H Radiography Diagnostic Testing: Radiology Impression Ankle X-Ray 03/02/21 00:44 IMPRESSION: Mild soft tissue swelling otherwise normal x-ray examination of the ankle. Electronically Signed: Paola Sylvester MD at 1:32 EDT , Service support , Foot X-Ray 03/02/21 00:44 IMPRESSION: Normal x-ray examination of the foot. Electronically Signed: Paola Sylvester MD at 1:32 EDT , Service support , Treatment and Re-Evaluation Comments:: White count is unremarkable. Sed rate and CRP are similar to prior values. Platelet count is normal. I spoke with Dr. Galicia. He advised the patient needs to ensure foot elevation for 15 minutes out of every hour. The increased erythema the patient is pointing out to me appears to be more consistent with settled blood as opposed to worsened infection. Patient is to continue his antibiotic course through the weekend and follow-up on Thursday. Prior to discharge patient voiced significant concern that his foot was much different tonight than it was when he was discharged from the hospital this afternoon. He did not feel comfortable going home. I spoke with Dr. Galicia again. Photos of the foot tonight were sent to Dr. Galicia via secure core text after obtaining the patient's consent. He does state that the medial and lateral portion of the right ankle do look different than this afternoon. He is concerned that the patient may have something else going on such as a vasculitis or other cause as he has been on antibiotics and there is no likely explanation for why his feet would suddenly worsen. He requested repeat foot and ankle x-rays. He would prefer the patient be admitted for further evaluation including other causes of his present condition. Right foot and ankle x-rays are reviewed by myself with no evidence of acute bony injury or obvious osseous infection. Discharge Plan Dx/Rx/DC Orders Clinical Impression: Tinea pedis, Cellulitis Disposition Disposition: Acute Care [facility]
[2021-03-01 23:23] LABS: Absolute Lymphocyte Count 2.55 X10^3/uL (0.83-4.51); Basophil# 0.07 X10^3/uL; Basophil% 0.7 % (0-1); Eosinophil# 0.51 X10^3/uL; Eosinophils% 5.4 % (0-5); Hematocrit 42.9 % (40-54); Hemoglobin 14.9 g/dL (13.0-16.5); Lymphocyte # 2.55 X10^3/ul (0.83-4.51); Lymphocyte % 27.2 % (19-41); Mean Corp Hgb Conc 34.7 g/dL (32-36); Mean Corpuscular Hgb 33.7 pg (27.0-32.0); Mean Corpuscular Volume 97.1 fL (80-94); Mean Platelet Vol. 8.3 fl (6.2-12.0); Monocyte# 1.15 X10^3/uL; Monocyte% 12.3 % (0-10); NRBC Flagged by Analyzer 0 % (0-5); Neutrophil % 53.5 % (47-70); Platelet Count 248 K/mm3 (150-450); RBC Distribution Width CV 11.6 % (11.6-14.6); RBC Distribution Width SD 41.4 fl (35.1-43.9); Red Blood Count 4.42 M/mm3 (4.6-6.2); White Blood Count 9.4 K/mm3 (4.4-11.0)
[2021-03-01 23:31] LABS: Erythrocyte Sedimentation Rate 26 mm/hr (0-20)
[2021-03-01 23:40] LABS: Anion Gap 9 (5-15); BUN 15 mg/dL (7-18); BUN/Creat Ratio 18.4 RATIO (10-20); CRP 3.01 mg/L (0.0-3.0); Calcium,Total 8.5 mg/dL (8.5-10.1); Chloride 100 mmol/L (98-107); Creatinine, Serum 0.81 mg/dL (0.70-1.30); EST Glomerular Filtration Rate 105 mL/min (>60); Est Glom Filt Rate - Afr Amer 128 mL/min (>60); Estimated Creatinine Clearance 113.62 ml/min; Glucose 117 mg/dL (74-106); Potassium 3.7 mmol/L (3.5-5.1); Sodium Level 132 mmol/L (136-145)
[2021-03-02] VITALS (9 sets, daily range): BP systolic 103–132; BP diastolic 59–83; PULSE 53–92; RESP 16–20; TEMP 36.5–37.1; O2SAT 93–100; BMI 31.9
--- NOTE | 2021-03-02 00:16 | ED.RN ---
Pt voices concerns with being discharged home at this time. aware and in to speak with patient.
--- NOTE | 2021-03-02 00:44 | RAD_ITS ---
STUDY: X-RAY - RIGHT ANKLE REASON FOR EXAM: Male, 50 years old. infection TECHNIQUE: 3 view(s) of the ankle. COMPARISON: None. FINDINGS: Normal visualized distal tibia and fibula. Normal medial and lateral malleoli. Normal tibiotalar articulation and ankle mortise. Normal visualized talus and calcaneus. The visualized subtalar, talonavicular, calcaneocuboid and tarsal articulations are normal. There is no demonstrated fracture. Mild soft tissue swelling surrounding the ankle. RAD/Ankle min 3 Views IMPRESSION: Mild soft tissue swelling otherwise normal x-ray examination of the ankle. Electronically Signed: Paola Sylvester MD at 1:32 EDT , Service support ,
--- NOTE | 2021-03-02 00:44 | RAD_ITS ---
STUDY: X-RAY - RIGHT FOOT CLINICAL: Male, 50 years old. infection TECHNIQUE: 3 view(s) of the foot. COMPARISON: None. FINDINGS: Normal talus, calcaneus, and tarsal bones. Normal visualized subtalar, talonavicular, calcaneocuboid, tarsal and tarsometatarsal articulations. Normal metatarsi. Normal metatarsophalangeal joint of the great toe. Normal tibial and fibular sesamoid bones. Normal interphalangeal joint of the great toe. Normal phalanges of the great toe. Normal second through fifth metatarsophalangeal joints. Normal interphalangeal joints and phalanges of the lesser toes. The soft tissue structures are unremarkable. There is no demonstrated fracture. RAD/Foot min 3 Views IMPRESSION: Normal x-ray examination of the foot. Electronically Signed: Paola Sylvester MD at 1:32 EDT , Service support ,
--- NOTE | 2021-03-02 01:07 | PCM.HP.STD ---
HPI - General General Date of Admission: 03/02/21 Date of Service: 03/02/21 Chief Complaint: Worsening redness, pain, patient concern for worsened cellulitis. HPI Narrative The patient is a 50 y/o M w/ PMHx: Obesity, Tobacco use, EtOH abuse, GERD, HTN who was recently discharged per Dr. Galicia on 03/01/21 following admission 02/26/21-03/01/21 for acute RLE cellulitis with leg and foot involvement complicated by tinea infection who now re-presents to the [facility] ED on 03/02/21 with patient concern for R medal and lateral ankle regions of increased redness and discomfort with patient concern for worsening cellulitis prompting re-evaluation. Patient denied any recent fever or chills. He notes wearing only flip flops since his recent discharge. He noted taking 1 dose of his medications since his discharge. Work-up in the ED included T 98, HR 88, BP 114/80, RR 20, 93% on RA, CBC w/ WBC 9.4, Hgb 14.9, Plts 248 without marked shift, ESR 26, BMP w/ Na 321, glucose 117, CRP 3.01, plain film of the foot unremarkable and plain film of the ankle with mild soft tissue swelling otherwise unremarkable. ED physician did discuss case with Dr. Galicia. [facility] Medical History GERD (gastroesophageal reflux disease) Hypertension Loose, teeth Smoker Home Medications aspirin 81 mg PO DAILY 05/24/16 [History Last Taken 03/01/21 10:00] hydrochlorothiazide 25 mg PO DAILY 05/24/16 [History Last Taken 03/01/21 09:00] lisinopril 5 mg PO DAILY 05/24/16 [History Last Taken 03/01/21 09:00] cephalexin 500 mg PO Q8H #21 tab 03/01/21 [Rx Last Taken Unknown] clotrimazole 1 applic TOPICAL BID 14 Days #15 g 03/01/21 [Rx Last Taken 03/01/21 17:00] doxycycline hyclate 100 mg PO BID #14 cap 03/01/21 [Rx Last Taken Unknown] ibuprofen 600 mg PO Q8H PRN PRN #0 tab 03/01/21 [Rx Last Taken Unknown] terbinafine HCl 250 mg PO DAILY #11 tab 03/01/21 [Rx Last Taken 03/01/21 09:00] Allergy/AdvReac Type Severity Reaction Status Date / Time Penicillins [PCN] Allergy Hives Verified 03/01/21 22:52 Family History (Updated 03/02/21 @ 02:[address] Margarita Worley MD) Mother Heart disease Hypertension HLD (hyperlipidemia) Father HLD (hyperlipidemia) Hypertension Heart disease Diabetes Surgical History History of cholecystectomy Social History (Updated 03/02/21 @ 02:[address] Margarita Worley MD) household members: family Smoking Status: Current every day smoker tobacco type: cigarettes Smoking packs per day: 0.5 Smoking cigarettes per day: 10.0 alcohol intake: current alcohol intake frequency: 0-2 drinks per day substance use type: does not use ROS ROS Narrative Admission Review of Systems: CONSTITUTIONAL: No weight loss, fever, chills, weakness or fatigue. HEENT: Eyes: No visual loss, blurred vision, double vision or yellow sclerae. Ears, Nose, Throat: No hearing loss, sneezing, congestion, runny nose or sore throat. SKIN: + BL tinea of the feet, resolving erythema to the dorsal feet, new onset R medial and lateral ankle skin changes, petechia. CARDIOVASCULAR: No chest pain, chest pressure or chest discomfort, palpitations, edema, orthopnea, syncopal events. RESPIRATORY: No shortness of breath, cough or sputum, wheezing, hemoptysis. GASTROINTESTINAL: No anorexia, nausea, vomiting or diarrhea, abdominal pain, melena, BRBPR. GENITOURINARY: No dysuria, frequency, urgency or retention. NEUROLOGICAL: No headache, dizziness, syncope, paralysis, ataxia, numbness or tingling in the extremities, focal weakness, change in bowel or bladder control, seizure. MUSCULOSKELETAL: + muscle, back pain, joint pain or stiffness. HEMATOLOGIC: + anemia, bleeding or bruising. LYMPHATICS: No enlarged nodes. No history of splenectomy. PSYCHIATRIC: No history of depression or anxiety. ENDOCRINOLOGIC: No reports of sweating, cold or heat intolerance. No polyuria or polydipsia. ALLERGIES: No history of asthma, hives, eczema or rhinitis. Vital Signs Vital Signs Vital Signs: 03/01/21 22:49 03/01/21 22:51 03/01/21 22:53 Temperature 98.3 F 98.3 F Temperature Source Temporal Temporal Pulse Rate 108 H 89 Respiratory Rate 16 16 Respiratory Effort Blood Pressure 149/85 H 104/75 Blood Pressure Mean 106 84 Pulse Ox 98 98 Oxygen Delivery Method Room Air Room Air Room Air 03/01/21 22:55 03/02/21 00:17 03/02/21 00:59 Temperature 98.0 F Temperature Source Temporal Pulse Rate 89 92 Respiratory Rate 16 16 Respiratory Effort Normal Blood Pressure 104/75 103/59 L Blood Pressure Mean 84 73 Pulse Ox 96 Oxygen Delivery Method Room Air Weight Weight: 225 lb Body Mass Index (BMI) 31.4 Physical Exam Narrative Physical Examination: General: Awake, alert, oriented x 3 and cooperative, seated upright in the ED bed in no apparent distress but anxious. Skin: Normal color, normal turgor, no icterus, no cyanosis except BL tinea of the feet, resolving erythema to the dorsal feet, new onset R medial and lateral ankle skin changes, petechial in appearance as well as BL LE ortega petechia. HEENT: AT/NC, EOMI, PERRLA, MMM, no carotid bruits or JVD noted. Lungs: CTA bilaterally, moderate effort, mild decrease BL bases, no rales, ronchi or wheezing. Heart: Regular rate and rhythm; no gallop, rub audible. Abdomen: Soft, obese, NTTP, ND, normal BS, no HSM. Extremities: No cyanosis, no clubbing, or marked edema, see skin as noted. Neurological: Patient awake, alert, oriented x 3, cognitive function intact; pupils equally reactive to light and accommodation, cranial nerves II-XII grossly normal, moving all 4 extremities, no focal deficits, strength preserved. Psychiatric: Affect appears mildly anxious, no acute evidence of depressive feelings. Results Lab / Micro Data Result Diagrams: 03/01/21 23:20 03/01/21 23:20 Labs: Laboratory Results - last 24 hr 03/01/21 03/01/21 23:20 23:20 WBC 9.4 RBC 4.42 L Hgb 14.9 Hct 42.9 MCV 97.1 H MCH 33.7 H MCHC 34.7 RDW Std Deviation 41.4 RDW Coeff of Ren 11.6 Plt Count 248 MPV 8.3 Immature Gran % (Auto) 0.900 Neut % (Auto) 53.5 Lymph % (Auto) 27.2 [place]field % (Auto) 12.3 H Eos % (Auto) 5.4 H Baso % (Auto) 0.7 Absolute Neuts (auto) 5.0 Absolute Lymphs (auto) 2.55 Nucleated RBC % 0 ESR 26 H Sodium 132 L Potassium 3.7 Chloride 100 Carbon Dioxide 23.0 Anion Gap 9 BUN 15 Creatinine 0.81 Estim Creat Clear Calc 113.62 Est GFR (MDRD) Af Amer 128 Est GFR (MDRD) Non-Af 105 BUN/Creatinine Ratio 18.4 Glucose 117 H Calcium 8.5 C-React Prot Ext Range 3.01 H Assessment & Plan Assessment/Plan (1) Cellulitis: QUALIFIERS: Site of cellulitis: extremity Site of cellulitis of extremity: lower extremity Laterality: right Qualified Code(s): L03.115 - Cellulitis of right lower limb (2) Tinea pedis: QUALIFIERS: Laterality: bilateral Qualified Code(s): B35.3 - Tinea pedis PLAN: The patient is a 50 y/o M w/ PMHx: Obesity, Tobacco use, EtOH abuse, GERD, HTN who was recently discharged per Dr. Galicia on 03/01/21 following admission 02/26/21-03/01/21 for acute RLE cellulitis with leg and foot involvement complicated by tinea infection who now re-presents to the [facility] ED on 03/02/21 with patient concern for R medal and lateral ankle regions of increased redness and discomfort with patient concern for worsening cellulitis prompting re-evaluation. 1. 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 Podiatry consulted and discussed case and suspicions of new skin findings consistent with vasculitis not cellulitis; however, still requested MRI R foot and DIANA/PVR to be cautious which will be ordered. Additionally, given Infectious disease has already evaluated this patient will cortext Dr. Hamm the admission R foot/ankle appearance. 2. EtOH Abuse: Patient with from description heavier EtOH intake history, encouraged decreased consumption amount. 3. Hypertension: Will continue home lisinopril, HCTZ regimen, PRN IV hydralazine. 4. Tobacco use: Encourage tobacco cessation, RT consultation, NR if desired. 5. Obesity: Encourage diet and lifestyle changes. 6. GERD: Will maintain on famotidine. 7. DVT prophylaxis: SCDs, hold on chemoprophylaxis given acute presentation as noted #1. Charges/Coding Visit Charges OBSV E&M: 24766 Initial observation care L3
--- NOTE | 2021-03-02 01:13 | MRI_ITS ---
HISTORY: Osteomyelitis -- rt foot. TECHNIQUE: Multiplanar and multisequence MR images of the right foot. IV Contrast dosage and agent: None. # of images including paperwork:225. COMPARISON: XR same day. FINDINGS: Motion artifact lowers the sensitivity of examination. BONE: No acute fracture or other significant bone marrow signal abnormality with the distal toes incompletely imaged. JOINTS: Trace joint fluid at the first metatarsal-phalangeal joint.Normal forefoot alignment. LIGAMENTS: Intact Lisfranc ligament. TENDONS: Flexor and extensor tendons without significant tenosynovitis. SOFT TISSUES: Dorsal subcutaneous edema without drainable fluid collection. MRI/Lower Ext/No Jt/w/o IMPRESSION: Dorsal subcutaneous edema, likely cellulitis. No evidence for osteomyelitis in the right foot. at 1256 Reported and signed by: Hannah Mercado MD Electronically Signed: Hannah Mercado MD at 12:55 EDT Tel , Service support ,
[2021-03-02] MEDS: 0.9% Normal Saline 1,000 ML 100 ML IV (02:23)
--- NOTE | 2021-03-02 02:31 | PCM.RX.CS ---
Consult Pharmacy has been consulted to manage selected antiobiotic: Vancomycin Type of Consult: New start Suspected Infection: Skin/Soft tissue Labs: Sodium 132 mmol/L (136-145) L 03/01/21 23:20 Potassium 3.7 mmol/L (3.5-5.1) 03/01/21 23:20 Chloride 100 mmol/L (98-107) 03/01/21 23:20 Carbon Dioxide 23.0 mmol/L (21.0-32.0) 03/01/21 23:20 Anion Gap 9 (5-15) 03/01/21 23:20 BUN 15 mg/dL (7-18) 03/01/21 23:20 Creatinine 0.81 mg/dL (0.70-1.30) 03/01/21 23:20 Est GFR (MDRD) Af Amer 128 mL/min (>60) 03/01/21 23:20 Est GFR (MDRD) Non-Af 105 mL/min (>60) 03/01/21 23:20 BUN/Creatinine Ratio 18.4 RATIO (10-20) 03/01/21 23:20 Glucose 117 mg/dL (74-106) H 03/01/21 23:20 Weight used for dosin.9 kg Estimated Creatinine Clearance: 130 Pharmacy Plan for Drug Dosing: Pharmacy Service will continue to monitor and adjust dosing as required. Medications Vancomycin HCl 1,250 mg/ (Sodium Chloride) 275 mls @ 167 mls/hr IV Q8H JERRELL Vancomycin HCl 2,000 mg/ (Sodium Chloride) 540 mls @ 250 mls/hr IV X1 ONE Stop: 03/02/21 04:39 Last Admin: 03/02/21 02:23 Dose: 250 mls/hr Documented by: Follow-Up Labs: Trough Vancomycin Labs to be done on [date and time ordered]: 03/03 @ 2553
[2021-03-02] MEDS: Cefazolin 1 GM/50 ML BAG IV ×3 (05:59→21:26)
[2021-03-02 07:42] LABS: Absolute Lymphocyte Count 1.84 X10^3/uL (0.83-4.51); Absolute Neutrophil Count 2.7 X10^3/uL (2.0-7.7); Basophil# 0.07 X10^3/uL; Basophil% 1.2 % (0-1); Eosinophil# 0.44 X10^3/uL; Eosinophils% 7.5 % (0-5); Hematocrit 43.3 % (40-54); Hemoglobin 14.6 g/dL (13.0-16.5); Lymphocyte # 1.84 X10^3/ul (0.83-4.51); Lymphocyte % 31.3 % (19-41); Mean Corp Hgb Conc 33.7 g/dL (32-36); Mean Corpuscular Hgb 33.5 pg (27.0-32.0); Mean Corpuscular Volume 99.3 fL (80-94); Mean Platelet Vol. 8.5 fl (6.2-12.0); Monocyte# 0.74 X10^3/uL; Monocyte% 12.6 % (0-10); NRBC Flagged by Analyzer 0 % (0-5); Neutrophil # 2.72 X10^3/uL (2.7-7.7); Neutrophil % 46.2 % (47-70); Platelet Count 264 K/mm3 (150-450); RBC Distribution Width CV 11.5 % (11.6-14.6); RBC Distribution Width SD 42.2 fl (35.1-43.9); Red Blood Count 4.36 M/mm3 (4.6-6.2); White Blood Count 5.9 K/mm3 (4.4-11.0)
--- NOTE | 2021-03-02 07:49 | MRI_ITS ---
HISTORY: possible infection, redness and swelling 4 weeks, top of foot and ankle. TECHNIQUE: Multiplanar and multisequence MR images of the right ankle. # of images incl. paperwork: 418. IV Contrast dosage and agent: None. 418 images. COMPARISON: XR same day. FINDINGS: OSSEOUS STRUCTURES: No acute fracture or other significant bone marrow signal abnormality.Talar dome intact without osteochondral lesion. JOINT SPACES: Alignment within normal limits without dislocation. No significant joint effusion. LIGAMENTS: Intact anterior and posterior talofibular, anterior and posterior tibiofibular, and deltoid ligaments. TENDONS: Peroneal tendons, flexor tendons, and extensor tendons without high-grade tear. Minimal non-circumferential fluid in the flexor tendon sheaths. Achilles tendon intact . PLANTAR FASCIA: No acute tear. SINUS TARSI: Preservation of fat. SOFT TISSUES: Dorsal subcutaneous edema of the ankle and foot extending laterally immediately. Pre-Achilles edema also noted. No drainable fluid collection identified. MRI/Lower Ext Joint Only (Routine) IMPRESSION: Subcutaneous edema of the right ankle, compatible with the history of cellulitis. No evidence for osteomyelitis. at 1247 Reported and signed by: Hannah Mercado MD Electronically Signed: Hannah Mercado MD at 12:46 EDT Tel , Service support ,
[2021-03-02 07:51] LABS: International Normalized Ratio 1.1; Prothrombin Time (Protime)PT. 13.3 SECONDS (11.7-14.9)
[2021-03-02 07:52] LABS: Partial Thromboplast Time 31.6 Seconds (24.1-36.2)
--- NOTE | 2021-03-02 07:57 | VDLE_ITS ---
Reason For Study: swelling RIGHT LEFT GSV is normal. GSV is normal. CFV is compressible, spontaneous, phasic, CFV is compressible, spontaneous, phasic, competent and demonstrates normal competent, and demonstrates normal augmentation. augmentation. FV is compressible, spontaneous, phasic, FV is compressible, spontaneous, phasic, competent and demonstrates normal competent and demonstrates normal augmentation. augmentation. POP V is compressible, spontaneous, phasic, POP V is compressible, spontaneous, phasic, competent and demonstrates normal competent and demonstrates normal augmentation. augmentation. T/P Trunk is compressible. T/P Trunk is compressible. PTV is compressible. PTV is compressible. RT PerV is compressible. LT PerV is compressible. Procedure This is a venous duplex using B-mode, color flow and spectral Doppler. Exam performed portable in patient room. The exam was diagnostic. A preliminary report was called and/or faxed to [facility]. VL/Venous Duplex US - Uri Extrem Interpretation Summary Deep veins of the lower extremities are bilaterally patent and compressible seg mentally. There is no evidence of deep vein thrombosis on either side. Valvular competence appears in tact within the proximal deep venous systems bilaterally. The great saphenous veins appear bila terally patent and compressible segmentally. Ordering Physician: Jatinder Galicia Performed By: Marcus Smith, RVT
[2021-03-02 08:17] LABS: ALB/GLOB Ratio 0.9 RATIO (0.9-2.4); AST(SGOT) 47 U/L (15-37); Alanine Aminotransfer ALT/SGPT 63 U/L (16-61); Albumin, Serum 3.3 g/dL (3.2-5.0); Alkaline Phosphatase 73 U/L (45-117); Anion Gap 7 (5-15); BUN 14 mg/dL (7-18); BUN/Creat Ratio 15.6 RATIO (10-20); Calcium,Total 8.3 mg/dL (8.5-10.1); Chloride 102 mmol/L (98-107); EST Glomerular Filtration Rate 94 mL/min (>60); Est Glom Filt Rate - Afr Amer 114 mL/min (>60); Estimated Creatinine Clearance 102.26 ml/min; Globulin 3.8 g/dL (2.2-4.2); Glucose 118 mg/dL (74-106); Protein, Total 7.1 g/dL (6.4-8.2); Sodium Level 136 mmol/L (136-145)
[2021-03-02 09:44] LABS: Rheumatoid Factor < 10.0 IU/mL (<15); Uric Acid 5.8 mg/dL (3.5-7.2)
--- NOTE | 2021-03-02 11:00 | CON.PCM_ITS ---
Assessment & Plan Assessment/Plan (1) Tinea pedis: QUALIFIERS: Laterality: bilateral Qualified Code(s): B35.3 - Tinea pedis (2) Cellulitis: QUALIFIERS: Laterality: right Site of cellulitis: extremity Site of cellulitis of extremity: lower extremity Qualified Code(s): L03.115 - Cellulitis of right lower limb (3) Purpura: PLAN: Re-evaluation performed and there are new areas of purpura to the medial and lateral ankle, he also has diffuse petechia to bilateral lower extremity - etiology unknown. This may be due to infection, or other possible etiology, possible vasculitis. Patient was readmitted for IV antibiotics - on Vancomycin and cefazolin. Clotrimazole cream to feet topically BID. A culture has been obtained of the right foot and sent to microbiology for further evaluation - MRSA PCR negative, no growth. Blood culture ordered. Right foot and ankle xrays were obtained in the ER - these were reviewed and no gas or evidence of osteomyelitis. MRI right foot and ankle obtained and negative for osteomyelitis and negative for abscess. Venous doppler bilateral lower extremity has been obtained and appears to have been negative for DVT. Infectious Disease/Dr. Hamm has been consulted. Discussed punch biopsy for further evaluation of petechiae/purpura which he agre ed with and will plan to proceed with tomorrow AM at bedside. Hospitalist service following as well. HPI Consult Data Date of Consult: 03/02/21 HPI Narrative HPI Narrative: NILDA MORALES, is a 50 M who presents for worsening right foot/ankle skin changes. He was discharged home yesterday and noticed by the evening yesterday he had darkening patches of the skin to the inside and outside of the right ankle. He relates he was somewhat active, but otherwise was resting, denies any know injury. He presented to the ER last night and was readmitted. He has been restarted on IV antibiotics. He is going to MRI this morning. Otherwise he has no other complaints. No fevers, no nausea, no vomiting, or any other complaints. WBC normal. He relates last time he had a fever was a couple of years ago. He relates he went hunting in Aug 2020 this year in [place], but denies any known recent tick exposure. He denies any joint pains, no other rashes or skin changes, just has tooth disease he has had trouble with in the past. [facility] Medical History GERD (gastroesophageal reflux disease) Hypertension Loose, teeth Smoker Home Medications aspirin 81 mg PO DAILY 05/24/16 [History Last Taken 03/01/21 10:00] hydrochlorothiazide 25 mg PO DAILY 05/24/16 [History Last Taken 03/01/21 09:00] lisinopril 5 mg PO DAILY 05/24/16 [History Last Taken 03/01/21 09:00] cephalexin 500 mg PO Q8H #21 tab 03/01/21 [Rx Last Taken Unknown] clotrimazole 1 applic TOPICAL BID 14 Days #15 g 03/01/21 [Rx Last Taken 03/01/21 17:00] doxycycline hyclate 100 mg PO BID #14 cap 03/01/21 [Rx Last Taken Unknown] ibuprofen 600 mg PO Q8H PRN PRN #0 tab 03/01/21 [Rx Last Taken Unknown] terbinafine HCl 250 mg PO DAILY #11 tab 03/01/21 [Rx Last Taken 03/01/21 09:00] Allergy/AdvReac Type Severity Reaction Status Date / Time Penicillins [PCN] Allergy Hives Verified 03/01/21 22:52 Family History (Updated 03/02/21 @ 02:[address] Margarita Worley MD) Mother Heart disease Hypertension HLD (hyperlipidemia) Father HLD (hyperlipidemia) Hypertension Heart disease Diabetes Surgical History History of cholecystectomy Social History (Updated 03/02/21 @ 02:[address] Margarita Worley MD) household members: family Smoking Status: Current every day smoker tobacco type: cigarettes Smoking packs per day: 0.5 Smoking cigarettes per day: 10.0 alcohol intake: current alcohol intake frequency: 0-2 drinks per day substance use type: does not use Physical Exam Extremity Extremity Narrative: Bilateral diffuse petechiae present to the foot/ankle leg, with purpura noted to the medial and lateral right ankle. There is some scaling and flaking to the dorsal right foot and less so on the left foot, very superficial healing crack of skin dorsal right 1st IM space, there is no drainage, no visible abscess, no fluctuance, no crepitus, no maloder, no necrosis present bilateral foot/ankle/leg, there is noted to be some erythema to the dorsal right foot, and very little to the dorsal left foot. Previous bulla/vesicles to the right foot resolved. CFT < 2 seconds to all toes, no evidence of acute ischemia to the foot or ankle bilateral, temperature within normal limits to the foot/ankle bilateral. Sensation intact to light touch to the foot and ankle bilateral. No hypersensitivity to the foot or ankle bilateral, no significant pain to the foot or ankle or leg bilateral. Lab / Micro Data Result Diagrams: 03/02/21 06:25 03/02/21 06:25 Labs: Laboratory Results - last 24 hr 03/01/21 03/01/21 03/02/21 23:20 23:20 06:25 WBC 9.4 5.9 RBC 4.42 L 4.36 L Hgb 14.9 14.6 Hct 42.9 43.3 MCV 97.1 H 99.3 H MCH 33.7 H 33.5 H MCHC 34.7 33.7 RDW Std Deviation 41.4 42.2 RDW Coeff of Ren 11.6 11.5 L Plt Count 248 264 MPV 8.3 8.5 Immature Gran % (Auto) 0.900 1.200 H Neut % (Auto) 53.5 46.2 L Lymph % (Auto) 27.2 31.3 [place] % (Auto) 12.3 H 12.6 H Eos % (Auto) 5.4 H 7.5 H Baso % (Auto) 0.7 1.2 H Absolute Neuts (auto) 5.0 2.7 Absolute Lymphs (auto) 2.55 1.84 Nucleated RBC % 0 0 ESR 26 H PT INR APTT Sodium 132 L Potassium 3.7 Chloride 100 Carbon Dioxide 23.0 Anion Gap 9 BUN 15 Creatinine 0.81 Estim Creat Clear Calc 113.62 Est GFR (MDRD) Af Amer 128 Est GFR (MDRD) Non-Af 105 BUN/Creatinine Ratio 18.4 Glucose 117 H Uric Acid Calcium 8.5 Total Bilirubin AST ALT Alkaline Phosphatase C-React Prot Ext Range 3.01 H Total Protein Albumin Globulin Albumin/Globulin Ratio Rheumatoid Factor 03/02/21 03/02/21 03/02/21 06:25 06:25 09:15 WBC RBC Hgb Hct MCV MCH MCHC RDW Std Deviation RDW Coeff of Ren Plt Count MPV Immature Gran % (Auto) Neut % (Auto) Lymph % (Auto) [place] % (Auto) Eos % (Auto) Baso % (Auto) Absolute Neuts (auto) Absolute Lymphs (auto) Nucleated RBC % ESR PT 13.3 INR 1.1 APTT 31.6 Sodium 136 Potassium 4.0 Chloride 102 Carbon Dioxide 27.0 Anion Gap 7 BUN 14 Creatinine 0.90 Estim Creat Clear Calc 102.26 Est GFR (MDRD) Af Amer 114 Est GFR (MDRD) Non-Af 94 BUN/Creatinine Ratio 15.6 Glucose 118 H Uric Acid 5.8 Calcium 8.3 L Total Bilirubin 0.50 AST 47 H ALT 63 H Alkaline Phosphatase 73 C-React Prot Ext Range Total Protein 7.1 Albumin 3.3 Globulin 3.8 Albumin/Globulin Ratio 0.9 Rheumatoid Factor < 10.0 Radiology Impression Ankle X-Ray 03/02/21 00:44 IMPRESSION: Mild soft tissue swelling otherwise normal x-ray examination of the ankle. Electronically Signed: Paola Sylvester MD at 1:32 EDT , Service support , Foot X-Ray 03/02/21 00:44 IMPRESSION: Normal x-ray examination of the foot. Electronically Signed: Paola Sylvester MD at 1:32 EDT , Service support ,
[2021-03-02] MEDS: 0.9% Saline Lock 10 ML Syringe IV ×2 (12:17→18:19)
[2021-03-02] MEDS: Lisinopril 5 MG Tablet PO (12:21)
[2021-03-02] MEDS: Famotidine 20 MG Tablet PO ×2 (12:21→21:26)
[2021-03-02] MEDS: hydroCHLOROthiazide 25 MG Tablet PO (12:21)
[2021-03-02] MEDS: Aspirin E.C. 81 MG Tablet PO (12:21)
[2021-03-02] MEDS: Clotrimazole 1 APPLIC Tube TOPICAL ×2 (12:31→21:26)
--- NOTE | 2021-03-02 13:43 | PN.HOSP_ITS ---
Subjective Subjective Feet got redness bilaterally. Has had this before (before this admission) as was told it was contact dermatitis from his socks and being on his feet all day at work. Objective Data Objective Data Vital Signs: Vital Signs Temp Pulse Resp BP Pulse Ox 36.8 C 89 18 132/83 H 96 03/02/21 12:13 03/02/21 12:13 03/02/21 12:13 03/02/21 12:13 03/02/21 12:13 Oxygen Delivery Method Room Air Weight: 103.7 kg Body Mass Index (BMI) 31.9 Intake & Output: Intake and Output for Last 24 Hours 02/28/21 03/01/21 03/02/21 23:59 23:59 23:59 Intake Total 725.00 / 725.00 Output Total 701 / 701 Balance 24.00 / 24.00 Lab / Micro Data Result Diagrams: 03/02/21 06:25 03/02/21 06:25 Labs: Laboratory Results - last 24 hr 03/01/21 03/01/21 03/02/21 23:20 23:20 06:25 WBC 9.4 5.9 RBC 4.42 L 4.36 L Hgb 14.9 14.6 Hct 42.9 43.3 MCV 97.1 H 99.3 H MCH 33.7 H 33.5 H MCHC 34.7 33.7 RDW Std Deviation 41.4 42.2 RDW Coeff of Ren 11.6 11.5 L Plt Count 248 264 MPV 8.3 8.5 Immature Gran % (Auto) 0.900 1.200 H Neut % (Auto) 53.5 46.2 L Lymph % (Auto) 27.2 31.3 [place] % (Auto) 12.3 H 12.6 H Eos % (Auto) 5.4 H 7.5 H Baso % (Auto) 0.7 1.2 H Absolute Neuts (auto) 5.0 2.7 Absolute Lymphs (auto) 2.55 1.84 Nucleated RBC % 0 0 ESR 26 H PT INR APTT Sodium 132 L Potassium 3.7 Chloride 100 Carbon Dioxide 23.0 Anion Gap 9 BUN 15 Creatinine 0.81 Estim Creat Clear Calc 113.62 Est GFR (MDRD) Af Amer 128 Est GFR (MDRD) Non-Af 105 BUN/Creatinine Ratio 18.4 Glucose 117 H Uric Acid Calcium 8.5 Total Bilirubin AST ALT Alkaline Phosphatase C-React Prot Ext Range 3.01 H Total Protein Albumin Globulin Albumin/Globulin Ratio Rheumatoid Factor 03/02/21 03/02/21 03/02/21 06:25 06:25 09:15 WBC RBC Hgb Hct MCV MCH MCHC RDW Std Deviation RDW Coeff of Ren Plt Count MPV Immature Gran % (Auto) Neut % (Auto) Lymph % (Auto) [place] % (Auto) Eos % (Auto) Baso % (Auto) Absolute Neuts (auto) Absolute Lymphs (auto) Nucleated RBC % ESR PT 13.3 INR 1.1 APTT 31.6 Sodium 136 Potassium 4.0 Chloride 102 Carbon Dioxide 27.0 Anion Gap 7 BUN 14 Creatinine 0.90 Estim Creat Clear Calc 102.26 Est GFR (MDRD) Af Amer 114 Est GFR (MDRD) Non-Af 94 BUN/Creatinine Ratio 15.6 Glucose 118 H Uric Acid 5.8 Calcium 8.3 L Total Bilirubin 0.50 AST 47 H ALT 63 H Alkaline Phosphatase 73 C-React Prot Ext Range Total Protein 7.1 Albumin 3.3 Globulin 3.8 Albumin/Globulin Ratio 0.9 Rheumatoid Factor < 10.0 Radiography Diagnostic Testing: Radiology Impression Ankle X-Ray 03/02/21 00:44 IMPRESSION: Mild soft tissue swelling otherwise normal x-ray examination of the ankle. Electronically Signed: Paola Sylvester MD at 1:32 EDT , Service support , Foot X-Ray 03/02/21 00:44 IMPRESSION: Normal x-ray examination of the foot. Electronically Signed: Paola Sylvester MD at 1:32 EDT , Service support , Lower Extremity MRI 03/02/21 01:13 IMPRESSION: Dorsal subcutaneous edema, likely cellulitis. No evidence for osteomyelitis in the right foot. at 1256 Reported and signed by: Hannah Mercado MD Electronically Signed: Hannah Mercado MD at 12:55 EDT Tel , Service support , Lower Extremity MRI 03/02/21 07:49 IMPRESSION: Subcutaneous edema of the right ankle, compatible with the history of cellulitis. No evidence for osteomyelitis. at 1247 Reported and signed by: Hannah Mercado MD Electronically Signed: Hannah Mercado MD at 12:46 EDT Tel , Service support , Physical Exam Const alert and no apparent distress Skin Skin Narrative: macular rash on bilateral LE R>L. Area of conflunence on medial right ankle. No similar rash elsewhere Neuro Sensorium / Orientation: awake and alert Psych affect normal Assessment & Plan Assessment/Plan (1) Cellulitis: QUALIFIERS: Site of cellulitis: extremity Site of cellulitis of extremity: lower extremity Laterality: right Qualified Code(s): L03.115 - Cellulitis of right lower limb (2) Tinea pedis: QUALIFIERS: Laterality: bilateral Qualified Code(s): B35.3 - Tinea pedis PLAN: 1. 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 * Podiatry consulted and discussed case and suspicions of new skin findings consistent with vasculitis not cellulitis; * MRI showed only changes cw cellulitis * Podiatry planning on biopsy on 03/03 2. EtOH Abuse: Patient with from description heavier EtOH intake history, encouraged decreased consumption amount. 3. Hypertension: Will continue home lisinopril, HCTZ regimen, PRN IV hydralazine. 4. Tobacco use: Encourage tobacco cessation, RT consultation, NR if desired. 5. Obesity: Encourage diet and lifestyle changes. 6. GERD: Will maintain on famotidine. 7. DVT prophylaxis: SCDs, hold on chemoprophylaxis given acute presentation as noted #1. Charges/Coding Procedures Hospitalists Procedures: Other Procedure - See Report (Non-billable rounding.)
[2021-03-02] MEDS: MELATONIN 3 MG TABLET PO (21:26)
[2021-03-03] VITALS: BP 96/50; PULSE 96; RESP 16; TEMP 36.9; O2SAT 98
[2021-03-03 03:23] VITALS: BP 107/69; PULSE 76; RESP 18; TEMP 36.9; O2SAT 96
[2021-03-03] MEDS: Cefazolin 1 GM/50 ML BAG IV (05:37)
[2021-03-03 06:12] LABS: Absolute Lymphocyte Count 1.66 X10^3/uL (0.83-4.51); Absolute Neutrophil Count 4.3 X10^3/uL (2.0-7.7); Basophil# 0.08 X10^3/uL; Basophil% 1.1 % (0-1); Eosinophils% 5.3 % (0-5); Hematocrit 41.2 % (40-54); Hemoglobin 13.9 g/dL (13.0-16.5); Lymphocyte # 1.66 X10^3/ul (0.83-4.51); Lymphocyte % 21.9 % (19-41); Mean Corp Hgb Conc 33.7 g/dL (32-36); Mean Corpuscular Hgb 33.7 pg (27.0-32.0); Mean Platelet Vol. 8.6 fl (6.2-12.0); Monocyte# 1.11 X10^3/uL; Monocyte% 14.6 % (0-10); NRBC Flagged by Analyzer 0 % (0-5); Neutrophil # 4.28 X10^3/uL (2.7-7.7); Neutrophil % 56.4 % (47-70); Platelet Count 244 K/mm3 (150-450); RBC Distribution Width CV 11.6 % (11.6-14.6); RBC Distribution Width SD 42.5 fl (35.1-43.9); Red Blood Count 4.12 M/mm3 (4.6-6.2); White Blood Count 7.6 K/mm3 (4.4-11.0)
[2021-03-03 06:35] LABS: Anion Gap 5 (5-15); BUN 19 mg/dL (7-18); BUN/Creat Ratio 19.2 RATIO (10-20); Calcium,Total 8.4 mg/dL (8.5-10.1); Chloride 102 mmol/L (98-107); Creatinine, Serum 0.99 mg/dL (0.70-1.30); EST Glomerular Filtration Rate 84 mL/min (>60); Est Glom Filt Rate - Afr Amer 102 mL/min (>60); Estimated Creatinine Clearance 92.96 ml/min; Glucose 133 mg/dL (74-106); Potassium 4.1 mmol/L (3.5-5.1); Sodium Level 135 mmol/L (136-145)
[2021-03-03 07:14] VITALS: O2SAT 96
[2021-03-03 08:43] VITALS: BP 110/77; PULSE 96; RESP 16; TEMP 36.8; O2SAT 96
--- NOTE | 2021-03-03 08:50 | LES_PTH ---
PATIENT: NILDA MORALES LOC: [facility] U#:[id number] AGE/SX: 50/M ROOM: IA323 RE03/02/[address]: Dr. Trung Mayer DO : 1970 BED: 1 DIS: 03/04/2021 SPEC #: [id number] RECD: 03/03/21 09:06 STATUS: ISAAC YOUNGER #: [id number] ELICIA: 03/03/21 08:[address]: Trung Mayer DEPT: SURGICAL PATHOLOGY RECD BY: Shaniqua Montesinos ENTERED: 03/05/21 08:01 SP TYPE: Lesion OTHR DR: MD Dr. Jatinder Mensah, DPM Dr. Jeremy Pablo MD Tissues: A - Skin of leg, NOS B - Skin of leg, NOS C - Skin of leg, NOS Procedures: Special Stain Group I Surgery Specimen Level IV AFB Stain (control) GMS Stain (control) HEADER OPERATION: Punch biopsies PRE-OP DIAGNOSIS: Dermatitis TISSUE SUBMITTED: A ? Right ortega, B ? Right ankle, C ? Right foot MICROSCOPIC DIAGNOSIS A. Skin lesion of right chin, punch biopsy: Mild chronic dermatitis. Negative for acid fast bacilli and fungal organisms. See microscopic description and comment. B. Skin lesion of right ankle, punch biopsy: Chronic superficial dermatitis. Negative for acid fast bacilli and fungal organisms. See microscopic description and comment. C. Skin lesion of right foot, punch biopsy: Ulceration with acute inflammation and granulation. Chronic superficial dermatitis. Parakeratosis. Negative for acid fast bacilli and fungal organisms. See microscopic description and comment. AM:fede 03/06/2021 COMMENT A-C. AFB and GMS stains with matched controls were used in the evaluation of this case. MICROSCOPIC DESCRIPTION Slides are reviewed. A. Microscopic sections show chronic inflammation of superficial dermis consisting primarily of polymorphous lymphocytes. No significant number of eosinophils or plasma cells are identified and there is no vasculitis present. There is no evidence of malignancy. Clinical correlation is suggested. B. Chronic inflammatory process involves the superficial dermis and perivascular spaces and consists of polymorphous lymphocytes and eosinophils. An interface dermatitis is not present and no spongiosis is identified. The differential diagnosis includes drug reaction. Clinical correlation is suggested. C. Chronic inflammatory process involves the superficial dermis and perivascular spaces and consists of polymorphous lymphocytes and eosinophils. An interface dermatitis is not present and no spongiosis is identified. The differential diagnosis includes drug reaction. Clinical correlation is suggested. There is focal intraepidermal neutrophils noted. GROSS DESCRIPTION A - Received in fixative is one container labeled with the patient's name and designated right ortega. The specimen consists of a light wood punch biopsy measuring 4 mm in length and 0.2 cm in diameter. The specimen is submitted in its entirety in one cassette. B - Received in fixative is one container labeled with the patient's name and designated right ankle. The specimen consists of two irregular fragments of light wood soft tissue that in aggregate measure 0.5 x 0.3 x 0.1 cm. The specimen is totally submitted in one cassette. C - Received in fixative is one container labeled with the patient's name and designated right foot. The specimen consists of two elongated fragments of light wood soft tissue. Each fragment measures 0.4 cm in length and 0.3 cm in diameter. The specimen is submitted in its entirety in one cassette. / AM:fede 03/05/21 TC:2 [facility]: [id number] [phone], [phone]
[2021-03-03 09:17] LABS: Pathology Skin Biopsy SEE PATHOLOGY REPORT
--- NOTE | 2021-03-03 09:17 | PCM.PROGNOTE ---
Subjective Subjective Patient was seen this morning for follow up feet/ankle/legs. He is resting in bed, no new complaints. No fevers. He relates to some itching to right foot/ankle. Objective Data Objective Data Vital Signs: Vital Signs Temp Pulse Resp BP Pulse Ox 98.3 F 96 16 110/77 96 03/03/21 08:43 03/03/21 08:43 03/03/21 08:43 03/03/21 08:43 03/03/21 08:43 Oxygen Delivery Method Room Air Weight: 104.598 kg Body Mass Index (BMI) 31.9 Intake & Output: Intake and Output for Last 24 Hours 03/01/21 03/02/21 03/03/21 23:59 23:59 23:59 Intake Total 2840.00 / 3240.00 1075 / 1075 Output Total 701 / 701 Balance 2139.00 / 2539.00 1075 / 1075 Lab / Micro Data Result Diagrams: 03/03/21 05:35 03/03/21 05:35 Labs: Laboratory Results - last 24 hr 03/02/21 03/03/21 03/03/21 09:15 05:35 05:35 WBC 7.6 RBC 4.12 L Hgb 13.9 Hct 41.2 MCV 100.0 H MCH 33.7 H MCHC 33.7 RDW Std Deviation 42.5 RDW Coeff of Ren 11.6 Plt Count 244 MPV 8.6 Immature Gran % (Auto) 0.700 Neut % (Auto) 56.4 Lymph % (Auto) 21.9 [place] % (Auto) 14.6 H Eos % (Auto) 5.3 H Baso % (Auto) 1.1 H Absolute Neuts (auto) 4.3 Absolute Lymphs (auto) 1.66 Nucleated RBC % 0 Sodium 135 L Potassium 4.1 Chloride 102 Carbon Dioxide 28.0 Anion Gap 5 BUN 19 H Creatinine 0.99 Estim Creat Clear Calc 92.96 Est GFR (MDRD) Af Amer 102 Est GFR (MDRD) Non-Af 84 BUN/Creatinine Ratio 19.2 Glucose 133 H Uric Acid 5.8 Calcium 8.4 L Rheumatoid Factor < 10.0 Micro: Microbiology 03/02/21 15:45 Mucosa - Nose SARS-CoV-2 Antigen (Rapid) - Final Radiography Diagnostic Testing: Radiology Impression Lower Extremity MRI 03/02/21 01:13 IMPRESSION: Dorsal subcutaneous edema, likely cellulitis. No evidence for osteomyelitis in the right foot. at 1256 Reported and signed by: Hannah Mercado MD Electronically Signed: Hannah Meracdo MD at 12:55 EDT Tel , Service support , Lower Extremity MRI 03/02/21 07:49 IMPRESSION: Subcutaneous edema of the right ankle, compatible with the history of cellulitis. No evidence for osteomyelitis. at 1247 Reported and signed by: Hannah Mercado MD Electronically Signed: Hannah Mercado MD at 12:46 EDT Tel , Service support , Physical Exam Extremity Extremity Narrative: Bilateral diffuse petechiae present to the foot/ankle leg, with purpura noted to the medial and lateral right ankle. There is some scaling and flaking to the dorsal right foot and less so on the left foot, very superficial healing crack of skin dorsal right 1st IM space, there is no drainage, no visible abscess, no fluctuance, no crepitus, no maloder, no necrosis present bilateral foot/ankle/leg, there is noted to be some erythema to the dorsal right foot, and very little to the dorsal left foot. Overall there appears to be some improvement. Previous bulla/vesicles to the right foot resolved. CFT < 2 seconds to all toes, no evidence of acute ischemia to the foot or ankle bilateral, temperature within normal limits to the foot/ankle bilateral. Sensation intact to light touch to the foot and ankle bilateral. No hypersensitivity to the foot or ankle bilateral, no significant pain to the foot or ankle or leg bilateral. Assessment & Plan Assessment/Plan (1) Tinea pedis: (2) Cellulitis: (3) Purpura: PLAN: Re-evaluation performed and there are new areas of purpura to the medial and lateral ankle, he also has diffuse petechia to bilateral lower extremity - etiology unknown. This may be due to infection, or other possible etiology, possible allergic reaction to cephlosporin, possible vasculitis. Further evaluation is indicated with punch biopsy. This was discussed with patient who agreed. See procedure details as noted below. Patient was readmitted for IV antibiotics - on Vancomycin and cefazolin. Spoke with Dr. Mayer, and Cefazolin will be stopped due to concern of allergic reaction as patient has hx of PCN allergy. Clotrimazole cream topically BID - will switch to lotrizone to help more with itching. A culture has been obtained of the right foot and sent to microbiology for further evaluation - MRSA PCR negative, no growth. Blood culture ordered and results pending. COVID test negative. Right foot and ankle xrays were obtained in the ER - these were reviewed and no gas or evidence of osteomyelitis. MRI right foot and ankle obtained and negative for osteomyelitis and negative for abscess. Venous doppler bilateral lower extremity has been obtained and are negative for DVT. Infectious Disease/Dr. Hamm has been consulted. Hospitalist service following as well. Discussed punch biopsy right foot/ankle and leg with patient. The possible benefits vs risks, goals, expectations and alternative options were discussed with patient. The consent form was reviewed with patient. He freely signed it. No guarantees were implied or made. No warranties were given. After consent was obtained, the skin was cleansed with 70% Isopropyl alcohol. A total of 8mL of 1% Lidocaine with 1:100,000 epi was given spread out between the right dorsal foot, medial and lateral ankle and anterior right leg. After anesthesia obtained, the skin was again cleansed with 70% Isopropyl alcohol and two 3mm punch biopsies were obtained from the right dorsal central foot overlying the dermatitis, also one 3mm punch biopsy from the right medial ankle and one 3mm punch biopsy from the lateral ankle over the area of dermatitis/purpura, and one 3mm punch biopsy from the right anterior mid ortega overlying the petechiae - these were all placed in separate 10% forumlin containers and sent to pathology for further evaluation. The biopsy sites were painted with betadine soln. Clotrimazole 1% cream was applied to the surrounding areas of dermatitis and a gauze, kerlix and michael dressing was applied. Keep clean, dry and intact - change BID. Patient tolerated well with no complications. He was resting in bed, doing well throughout procedure. EBL < 1mL. Podiatry will continue to follow.
[2021-03-03] MEDS: Lidocaine 1% /Epi 1:100 (50ml) 50 ML VIAL INFILT (09:44)
[2021-03-03] MEDS: Aspirin E.C. 81 MG Tablet PO (09:45)
[2021-03-03] MEDS: Famotidine 20 MG Tablet PO ×2 (09:46→21:24)
[2021-03-03] MEDS: hydroCHLOROthiazide 25 MG Tablet PO (09:46)
[2021-03-03] MEDS: Lisinopril 5 MG Tablet PO (09:47)
[2021-03-03] MEDS: TERBINAFINE HCL 250 MG TABLET PO (09:47)
[2021-03-03 10:31] LABS: Vancomycin, Trough Level 19.2 ug/mL (5.0-15.0)
--- NOTE | 2021-03-03 11:06 | PN.HOSP_ITS ---
Subjective Subjective rash improved Objective Data Objective Data Vital Signs: Vital Signs Temp Pulse Resp BP Pulse Ox 36.8 C 96 16 110/77 96 03/03/21 08:43 03/03/21 08:43 03/03/21 08:43 03/03/21 08:43 03/03/21 08:43 Oxygen Delivery Method Room Air Weight: 104.598 kg Body Mass Index (BMI) 31.9 Intake & Output: Intake and Output for Last 24 Hours 03/01/21 03/02/21 03/03/21 23:59 23:59 23:59 Intake Total 2840.00 / 3240.00 1075 / 1075 Output Total 701 / 701 Balance 2139.00 / 2539.00 1075 / 1075 Lab / Micro Data Result Diagrams: 03/03/21 05:35 03/03/21 05:35 Labs: Laboratory Results - last 24 hr 03/03/21 03/03/21 03/03/21 05:35 05:35 09:35 WBC 7.6 RBC 4.12 L Hgb 13.9 Hct 41.2 MCV 100.0 H MCH 33.7 H MCHC 33.7 RDW Std Deviation 42.5 RDW Coeff of Ren 11.6 Plt Count 244 MPV 8.6 Immature Gran % (Auto) 0.700 Neut % (Auto) 56.4 Lymph % (Auto) 21.9 [place] % (Auto) 14.6 H Eos % (Auto) 5.3 H Baso % (Auto) 1.1 H Absolute Neuts (auto) 4.3 Absolute Lymphs (auto) 1.66 Nucleated RBC % 0 Sodium 135 L Potassium 4.1 Chloride 102 Carbon Dioxide 28.0 Anion Gap 5 BUN 19 H Creatinine 0.99 Estim Creat Clear Calc 92.96 Est GFR (MDRD) Af Amer 102 Est GFR (MDRD) Non-Af 84 BUN/Creatinine Ratio 19.2 Glucose 133 H Calcium 8.4 L Vancomycin Trough 19.2 H Micro: Microbiology 03/02/21 15:45 Mucosa - Nose SARS-CoV-2 Antigen (Rapid) - Final Radiography Diagnostic Testing: Radiology Impression Lower Extremity MRI 03/02/21 01:13 IMPRESSION: Dorsal subcutaneous edema, likely cellulitis. No evidence for osteomyelitis in the right foot. at 1256 Reported and signed by: Hannah Mercado MD Electronically Signed: Hannah Mercado MD at 12:55 EDT Tel , Service support , Lower Extremity MRI 03/02/21 07:49 IMPRESSION: Subcutaneous edema of the right ankle, compatible with the history of cellulitis. No evidence for osteomyelitis. at 1247 Reported and signed by: Hannah Mercado MD Electronically Signed: Hannah Mercado MD at 12:46 EDT Tel , Service support , Physical Exam Const alert, oriented x3 and no apparent distress HEENT head/scalp atraumatic Head and Scalp: normocephalic Extremity Extremity Narrative: decreeased macular rash on lower extremities Assessment & Plan Assessment/Plan (1) Cellulitis: (2) Tinea pedis: PLAN: 1. 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 * Podiatry consulted and discussed case and suspicions of new skin findings con sistent with vasculitis not cellulitis; * MRI showed only changes cw cellulitis * Podiatry performed Bx 03/03 * 03/03: improved. Has peripheral eosinophilia. dc cephazolin and observe (known PCN allergy) 2. EtOH Abuse: Patient with from description heavier EtOH intake history, encouraged decreased consumption amount. 3. Hypertension: Will continue home lisinopril, HCTZ regimen, PRN IV hydralazine. 4. Tobacco use: Encourage tobacco cessation, RT consultation, NR if desired. 5. Obesity: Encourage diet and lifestyle changes. 6. GERD: Will maintain on famotidine. 7. DVT prophylaxis: SCDs, hold on chemoprophylaxis given acute presentation as noted #1. Charges/Coding Visit Charges Inpatient E&M: 16389 Subs Hosp L2
--- NOTE | 2021-03-03 11:13 | PCM.RX.CS ---
Consult Pharmacy has been consulted to manage selected antiobiotic: Vancomycin Type of Consult: Follow-up Suspected Infection: Skin/Soft tissue Prior Doses of Antibiotics Received/Current Regimen: currently on 1250mg IV q8h Labs: Sodium 135 mmol/L (136-145) L 03/03/21 05:35 Potassium 4.1 mmol/L (3.5-5.1) 03/03/21 05:35 Chloride 102 mmol/L (98-107) 03/03/21 05:35 Carbon Dioxide 28.0 mmol/L (21.0-32.0) 03/03/21 05:35 Anion Gap 5 (5-15) 03/03/21 05:35 BUN 19 mg/dL (7-18) H 03/03/21 05:35 Creatinine 0.99 mg/dL (0.70-1.30) 03/03/21 05:35 Est GFR (MDRD) Af Amer 102 mL/min (>60) 03/03/21 05:35 Est GFR (MDRD) Non-Af 84 mL/min (>60) 03/03/21 05:35 BUN/Creatinine Ratio 19.2 RATIO (10-20) 03/03/21 05:35 Glucose 133 mg/dL (74-106) H 03/03/21 05:35 Vancomycin Trough 19.2 ug/mL (5.0-15.0) H 03/03/21 09:35 Microbiology: Microbiology 03/02/21 15:45 Mucosa - Nose SARS-CoV-2 Antigen (Rapid) - Final Weight used for dosin.6 kg Estimated Creatinine Clearance: 107ml/min Goal Trough: 15-20 mcg/mL Pharmacy Plan for Drug Dosing: The vanc trough drawn before this morning's dose (7.5 hours after the previous dose) resulted in a value of 19.2. This is within goal range so will keep same dosing for now but will check the trough again tomorrow morning since it is already at the higher end of the goal range. If it keeps getting higher the dose may need decreased. The patient's CrCl of 107ml/min was calculated using an adjusted body weight of 87kg. Pharmacy Service will continue to monitor and adjust dosing as required. Follow-Up Labs: Trough Vancomycin Labs to be done on [date and time ordered]: 03/04/21 09:30
[2021-03-03 13:06] LABS: ANTINUCLEAR ANTIBODIES DIRECT Negative (Negative)
[2021-03-03 13:39] VITALS: BP 101/60; PULSE 84; RESP 16; TEMP 36.9; O2SAT 96
[2021-03-03] MEDS: Acetaminophen 325 MG Tablet 650 MG PO (19:57)
[2021-03-03] MEDS: oxyCODONE 5 MG Tablet PO (19:57)
[2021-03-03] MEDS: 0.9% Saline Lock 10 ML Syringe IV (19:58)
[2021-03-03 20:00] VITALS: BP 116/86; PULSE 86; RESP 18; TEMP 37.1; O2SAT 96
[2021-03-03] MEDS: Clotrimazole/Betamethasone 1 Tube 1 APPLIC TOPICAL (21:24)
[2021-03-03] MEDS: MELATONIN 3 MG TABLET PO (21:32)
[2021-03-04 03:25] VITALS: BP 108/66; PULSE 80; RESP 18; TEMP 36.8; O2SAT 96
[2021-03-04] MEDS: 0.9% Saline Lock 10 ML Syringe IV (05:06)
[2021-03-04 06:29] LABS: Absolute Lymphocyte Count 1.48 X10^3/uL (0.83-4.51); Absolute Neutrophil Count 4.6 X10^3/uL (2.0-7.7); Basophil# 0.07 X10^3/uL; Basophil% 0.9 % (0-1); Eosinophil# 0.27 X10^3/uL; Eosinophils% 3.6 % (0-5); Hematocrit 41.8 % (40-54); Hemoglobin 14.2 g/dL (13.0-16.5); Lymphocyte # 1.48 X10^3/ul (0.83-4.51); Lymphocyte % 19.6 % (19-41); Mean Corpuscular Hgb 33.4 pg (27.0-32.0); Mean Corpuscular Volume 98.4 fL (80-94); Mean Platelet Vol. 8.6 fl (6.2-12.0); Monocyte% 14.6 % (0-10); NRBC Flagged by Analyzer 0 % (0-5); Neutrophil # 4.57 X10^3/uL (2.7-7.7); Neutrophil % 60.6 % (47-70); Platelet Count 240 K/mm3 (150-450); RBC Distribution Width CV 11.6 % (11.6-14.6); RBC Distribution Width SD 42.1 fl (35.1-43.9); Red Blood Count 4.25 M/mm3 (4.6-6.2); White Blood Count 7.5 K/mm3 (4.4-11.0)
[2021-03-04 06:58] LABS: Anion Gap 7 (5-15); BUN 22 mg/dL (7-18); BUN/Creat Ratio 24.3 RATIO (10-20); Calcium,Total 8.7 mg/dL (8.5-10.1); Chloride 101 mmol/L (98-107); EST Glomerular Filtration Rate 93 mL/min (>60); Est Glom Filt Rate - Afr Amer 113 mL/min (>60); Estimated Creatinine Clearance 102.26 ml/min; Glucose 135 mg/dL (74-106); Potassium 3.9 mmol/L (3.5-5.1); Sodium Level 135 mmol/L (136-145)
[2021-03-04 07:14] VITALS: O2SAT 97
[2021-03-04 08:22] VITALS: BP 109/62; PULSE 82; RESP 18; TEMP 36.7; O2SAT 96
[2021-03-04] MEDS: Aspirin E.C. 81 MG Tablet PO (08:26)
[2021-03-04] MEDS: Famotidine 20 MG Tablet PO (08:27)
[2021-03-04] MEDS: hydroCHLOROthiazide 25 MG Tablet PO (08:27)
[2021-03-04] MEDS: Lisinopril 5 MG Tablet PO (08:27)
[2021-03-04] MEDS: TERBINAFINE HCL 250 MG TABLET PO (08:27)
--- NOTE | 2021-03-04 09:14 | PN.HOSP_ITS ---
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 48-year-old white male who presented earlier with tinea pedis as well as right lower extremity cellulitis presents short after being discharged with increasing rash on bilateral lower extremities. Is macular rash with satellite areas concerning for allergic reaction. Patient did have elevated peripheral eosinophils was also evident during the previous admission as well. Patient was seen by podiatry and did have biopsies performed on the fourth, results of which are still pending at the time of this dictation. It yesterday his cefazolin was held and today his peripheral is sent films are back to normal. It is my feeling that this is a drug reaction related with the cephalosporins. He is not having a rash elsewhere other than on his feet and shins and appears to be improving. We will add cephalosporins to his allergy list and instructed the patient about this being a potential allergy. Patient had been prescribed cephalexin and doxycycline from the last admission. Patient will continue with the doxycycline and discontinue the cephalexin. Physical exam: Vital signs 109/62 blood pressure, pulse 82, respirations 18, temperature 36.7 and O2 sats 96% on room air. Patient has decreased macular rash on the anterior feet and shins. Does have tinea pedis. Discharge Instructions Diet Discharge Diet: No restrictions Activity Weight Bearing Status: Weight bearing as tolerated (surgical shoe when up. ) Dressing / Incision Call your doctor if your incision/area has: Continuous Slow Oozing, Sudden Increased Bleeding, Increased Pain/ Swelling, Increased Redness and Foul Smelling Discharge Call your doctor if you observe: Fever of 101 or Higher Change Dressing in: 1 day Follow Up Care Test Results: Test results from this visit will be discussed in further detail at your follow-up appointment, if applicable. Discharge Plan Admission Admit Date/Time: 02/26/21 13:07 Attending Provider: Trung Mayer Primary Care Provider: Jeremy Pablo Consulting Providers: Gr[place] Discharge Orders/Prescriptions Prescriptions: New terbinafine HCl 250 mg Tablet 250 mg PO DAILY Qty: 11 RF: 0 ibuprofen 600 mg Tablet 600 mg PO Q8H PRN PRN (Reason: fever, pain 1-10/10) Qty: 0 RF: 0 clotrimazole 1 % cream 1 applic topical BID 14 Days Qty: 15 RF: 0 doxycycline hyclate 100 mg capsule 100 mg PO BID Qty: 14 RF: 0 STOP: cephalexin (Keflex) Continued aspirin 81 MG tablet,delayed release (DR/EC) 81 mg PO DAILY RF: 0 lisinopril 5 MG tablet 5 mg PO DAILY RF: 0 hydrochlorothiazide 25 MG tablet 25 mg PO DAILY RF: 0 Referrals / Follow Up: Jatinder Galicia DPM [STAFF PHYSICIAN] - In 1 Week Jeremy Pablo MD [Primary Care Provider] - In 1 Week Greater than 32 minutes spent on discharge Visit Charges Inpatient E&M: 97255 Disch Hosp
--- NOTE | 2021-03-04 09:36 | PCM.PROGNOTE ---
Subjective Subjective Patient was seen this morning for follow up on feet, ankle, legs. He relates he feels there has been improvement since yesterday. He has no new complaints. No complaints of fever, chills, nausea, vomiting, or calf pain. Objective Data Objective Data Vital Signs: Vital Signs Temp Pulse Resp BP Pulse Ox 98.1 F 82 18 109/62 96 03/04/21 08:22 03/04/21 08:22 03/04/21 08:22 03/04/21 08:22 03/04/21 08:22 Oxygen Delivery Method Room Air Weight: 103.6 kg Body Mass Index (BMI) 31.9 Intake & Output: Intake and Output for Last 24 Hours 03/02/21 03/03/21 03/04/21 23:59 23:59 23:59 Intake Total 2840.00 / 3240.00 1625 / 2845 1895 / 1895 Output Total 701 / 701 725 / 725 Balance 2139.00 / 2539.00 1625 / 2845 1170 / 1170 Lab / Micro Data Result Diagrams: 03/04/21 06:07 03/04/21 06:07 Labs: Laboratory Results - last 24 hr 03/02/21 03/03/21 03/04/21 09:15 09:35 06:07 WBC 7.5 RBC 4.25 L Hgb 14.2 Hct 41.8 MCV 98.4 H MCH 33.4 H MCHC 34.0 RDW Std Deviation 42.1 RDW Coeff of Ren 11.6 Plt Count 240 MPV 8.6 Immature Gran % (Auto) 0.700 Neut % (Auto) 60.6 Lymph % (Auto) 19.6 [place] % (Auto) 14.6 H Eos % (Auto) 3.6 Baso % (Auto) 0.9 Absolute Neuts (auto) 4.6 Absolute Lymphs (auto) 1.48 Nucleated RBC % 0 Sodium Potassium Chloride Carbon Dioxide Anion Gap BUN Creatinine Estim Creat Clear Calc Est GFR (MDRD) Af Amer Est GFR (MDRD) Non-Af BUN/Creatinine Ratio Glucose Calcium Vancomycin Trough 19.2 H LUIS A Screen Negative 03/04/21 06:07 WBC RBC Hgb Hct MCV MCH MCHC RDW Std Deviation RDW Coeff of Ren Plt Count MPV Immature Gran % (Auto) Neut % (Auto) Lymph % (Auto) [place] % (Auto) Eos % (Auto) Baso % (Auto) Absolute Neuts (auto) Absolute Lymphs (auto) Nucleated RBC % Sodium 135 L Potassium 3.9 Chloride 101 Carbon Dioxide 27.0 Anion Gap 7 BUN 22 H Creatinine 0.90 Estim Creat Clear Calc 102.26 Est GFR (MDRD) Af Amer 113 Est GFR (MDRD) Non-Af 93 BUN/Creatinine Ratio 24.3 H Glucose 135 H Calcium 8.7 Vancomycin Trough LUIS A Screen Micro: Microbiology 03/02/21 15:45 Mucosa - Nose SARS-CoV-2 Antigen (Rapid) - Final Radiography Diagnostic Testing: Radiology Impression Venous Doppler Study 03/02/21 07:57 Interpretation Summary Deep veins of the lower extremities are bilaterally patent and compressible segmentally. There is no evidence of deep vein thrombosis on either side. Valvular competence appears intact within the proximal deep venous systems bilaterally. The great saphenous veins appear bilaterally patent and compressible segmentally. Ordering Physician: Jatinder Galicia Performed By: Marcus Smith, RVT Physical Exam Extremity Extremity Narrative: Bilateral diffuse petechiae present to the foot/ankle leg, with purpura noted to the medial and lateral right ankle, there is some scaling and flaking to the dorsal right foot and less so on the left foot - improved, superficial crack of skin dorsal right 1st IM space is healed, there is no drainage, no visible abscess, no fluctuance, no crepitus, no maloder, no necrosis present bilateral foot/ankle/leg, there is noted to be some erythema to the dorsal right foot, and very little to the dorsal left foot. Overall there appears to be some improvement. Previous bulla/vesicles to the right foot resolved. CFT < 2 seconds to all toes, no evidence of acute ischemia to the foot or ankle bilateral, temperature within normal limits to the foot/ankle bilateral. Sensation intact to light touch to the foot and ankle bilateral. No hypersensitivity to the foot or ankle bilateral, no significant pain to the foot or ankle or leg bilateral. Assessment & Plan Assessment/Plan (1) Tinea pedis: (2) Cellulitis: (3) Purpura: PLAN: Re-evaluation performed. New areas of purpura to the medial and lateral ankle, he also has diffuse petechia to bilateral lower extremity - Improvement noted. Punch biopsies have been obtained and pending. Patient was readmitted for IV antibiotics - on Vancomycin and cefazolin. Spoke with Dr. Mayer, and Cefazolin was stopped yesterday - patient has hx of PCN allergy. Patient is going to just use Doxycycline once discharged. Lotrisone BID topically to feet/ankle/legs. A culture has been obtained of the right foot and sent to microbiology for further evaluation - MRSA PCR negative, no growth. Blood culture ordered and pending results at this time. COVID test negative. Right foot and ankle xrays were obtained in the ER - these were reviewed and no gas or evidence of osteomyelitis. MRI right foot and ankle obtained and negative for osteomyelitis and negative for abscess. Venous doppler bilateral lower extremity has been obtained and are negative for DVT. Patient to follow up with me in office this week.
[2021-03-04 10:16] VITALS: BP 109/62; PULSE 82; RESP 18; TEMP 36.7; O2SAT 96
[2021-03-06 07:25] LABS: CCP IgG Antibodies 4 units (0-19)
== END 2021-03-04 10:12 | disposition home or self-care (01) ==
LOC: ED 03-02 00:42 → MS3 03-02 07:01
PROVIDERS: Podiatrist; Admitting Provider Family Medicine; Emergency Provider Emergency Medicine; PCP Family Medicine
DX: L03.116 Cellulitis of left lower limb (principal); L03.115 Cellulitis of right lower limb; B35.3 Tinea pedis; K21.9 Gastro-esophageal reflux disease without esophagitis; I10 Essential (primary) hypertension; F17.210 Nicotine dependence, cigarettes, uncomplicated; Z79.899 Other long term (current) drug therapy; Z79.82 Long term (current) use of aspirin; E66.9 Obesity, unspecified; Z68.31 Body mass index [BMI] 31.0-31.9, adult; F10.10 Alcohol abuse, uncomplicated; D69.2 Other nonthrombocytopenic purpura; D72.10 Eosinophilia, unspecified; L30.9 Dermatitis, unspecified; R23.4 Changes in skin texture
CPT/HCPCS: 11104; 11105 ×3; 36415; 73610; 73630; 73718; 73721; 80048; 80053; 80202; 84550; 85025; 85610; 85652; 85730; 86038; 86140; 86200; 86431; 87040; 87426; 88305; 88312; 93970; 96361; 96365; 96366; 96367; 97802; 99218; 99251; 99284; 99406; J7030; J7040; J7050; A4216; G0378; G0463

== ENCOUNTER → 2021-03-08 14:09 | Outpatient (CLI) | payer OTHER, SELFPAY ==
[2021-03-02 02:01] VITALS: BMI 31.9
[2021-03-08 15:51] LABS: Absolute Lymphocyte Count 1.73 X10^3/uL (0.83-4.51); Absolute Neutrophil Count 3.9 X10^3/uL (2.0-7.7); Basophil# 0.07 X10^3/uL; Eosinophil# 0.26 X10^3/uL; Eosinophils% 3.8 % (0-5); Hematocrit 43.4 % (40-54); Hemoglobin 14.8 g/dL (13.0-16.5); Lymphocyte # 1.73 X10^3/ul (0.83-4.51); Lymphocyte % 25.1 % (19-41); Mean Corp Hgb Conc 34.1 g/dL (32-36); Mean Corpuscular Hgb 33.5 pg (27.0-32.0); Mean Corpuscular Volume 98.2 fL (80-94); Mean Platelet Vol. 9.4 fl (6.2-12.0); Monocyte# 0.86 X10^3/uL; Monocyte% 12.5 % (0-10); NRBC Flagged by Analyzer 0 % (0-5); Neutrophil # 3.91 X10^3/uL (2.7-7.7); Neutrophil % 56.9 % (47-70); Platelet Count 304 K/mm3 (150-450); RBC Distribution Width CV 11.3 % (11.6-14.6); RBC Distribution Width SD 41.1 fl (35.1-43.9); Red Blood Count 4.42 M/mm3 (4.6-6.2); White Blood Count 6.9 K/mm3 (4.4-11.0)
[2021-03-08 16:59] LABS: BUN 16 mg/dL (7-18); Creatinine, Serum 1.02 mg/dL (0.70-1.30); Glucose 124 mg/dL (74-106)
[2021-03-08 17:00] LABS: ALB/GLOB Ratio 0.8 RATIO (0.9-2.4); AST(SGOT) 27 U/L (15-37); Alanine Aminotransfer ALT/SGPT 67 U/L (16-61); Albumin, Serum 3.5 g/dL (3.2-5.0); Alkaline Phosphatase 86 U/L (45-117); Anion Gap 5 (5-15); BUN/Creat Ratio 15.7 RATIO (10-20); Calcium,Total 8.9 mg/dL (8.5-10.1); Chloride 99 mmol/L (98-107); EST Glomerular Filtration Rate 81 mL/min (>60); Est Glom Filt Rate - Afr Amer 98 mL/min (>60); Globulin 4.3 g/dL (2.2-4.2); Potassium 3.7 mmol/L (3.5-5.1); Protein, Total 7.8 g/dL (6.4-8.2); Sodium Level 135 mmol/L (136-145)
== END ==
LOC: MTLAB 14:10
PROVIDERS: PCP Family Medicine; Referring Provider Podiatrist; Visit Provider Podiatrist
DX: L03.115 Cellulitis of right lower limb (principal)
CPT/HCPCS: 36415; 80053; 85025

== ENCOUNTER → 2023-04-15 | Outpatient (CLI) | payer OTHER, SELFPAY ==
[2023-04-15 11:05] LABS: Anion Gap 7 (5-15); BUN 17 mg/dL (7-18); BUN/Creat Ratio 17.9 RATIO (10-20); Calcium,Total 9.3 mg/dL (8.5-10.1); Chloride 104 mmol/L (98-107); Cholesterol 247 mg/dL (200); Creatinine, Serum 0.95 mg/dL (0.70-1.30); EST Glomerular Filtration Rate 88 mL/min (>60); Est Glom Filt Rate - Afr Amer 106 mL/min (>60); Glucose 157 mg/dL (74-106); High Density Lipoprotein 44 mg/dL; PSA,Total - Annual Screen 0.41 ng/mL (0.00-4.00); Potassium 4.1 mmol/L (3.5-5.1); Sodium Level 136 mmol/L (136-145); Triglycerides 226 mg/dL; Very Low Density Lipoprotein 45 mg/dL (5-40)
== END | disposition home or self-care (01) ==
PROVIDERS: PCP Family Medicine; Referring Provider Family Medicine; Visit Provider Family Medicine
DX: Z00.00 Encounter for general adult medical examination without abnormal findings (principal); I10 Essential (primary) hypertension
CPT/HCPCS: 36415; 80048; 80061; 84153; G0103